=== PATIENT | female | born 1960 | race Caucasian/White ===

== ENCOUNTER → 2019-02-28 | Outpatient (CLI) | payer MEDICARE, SELFPAY ==
[2019-02-28 17:35] LABS: Absolute Lymphocyte Count 3.51 X10^3/uL (0.83-4.51); Absolute Neutrophil Count 5.9 X10^3/uL (2.0-7.7); Basophil# 0.05 X10^3/uL; Basophil% 0.5 % (0-1); Eosinophil# 0.07 X10^3/uL; Eosinophils% 0.7 % (0-5); Hematocrit 48.5 % (37-47); Hemoglobin 15.5 g/dL (12.0-15.0); Lymphocyte # 3.51 X10^3/ul (4.0); Lymphocyte % 33.9 % (19-41); Mean Corpuscular Hgb 28.9 pg (27.0-32.0); Mean Corpuscular Volume 90.5 fL (81-99); Mean Platelet Vol. 11.5 fl (6.2-12.0); Monocyte# 0.77 X10^3/uL; Monocyte% 7.4 % (0-10); NRBC Flagged by Analyzer 0 % (0-5); Neutrophil # 5.92 X10^3/uL (2.7-7.7); Neutrophil % 57.2 % (47-70); Platelet Count 206 K/mm3 (150-450); RBC Distribution Width CV 14.6 % (11.6-14.6); RBC Distribution Width SD 48.6 fl (35.1-43.9); Red Blood Count 5.36 M/mm3 (4.2-5.4); White Blood Count 10.4 K/mm3 (4.4-11.0)
[2019-02-28 17:52] LABS: AST(SGOT) 22 U/L (15-37); Alanine Aminotransfer ALT/SGPT 18 U/L (13-56); Albumin, Serum 3.3 g/dL (3.2-5.0); Alkaline Phosphatase 62 U/L (45-117); Anion Gap 8 (5-15); BUN 11 mg/dL (7-18); BUN/Creat Ratio 16.8 RATIO (10-20); Calcium,Total 8.8 mg/dL (8.5-10.1); Chloride 107 mmol/L (98-107); Creatinine, Serum 0.66 mg/dL (0.55-1.02); EST Glomerular Filtration Rate 99 mL/min (>60); Est Glom Filt Rate - Afr Amer 120 mL/min (>60); Globulin 3.4 g/dL (2.2-4.2); Glucose 104 mg/dL (74-106); Potassium 3.9 mmol/L (3.5-5.1); Protein, Total 6.7 g/dL (6.4-8.2); Sodium Level 140 mmol/L (136-145); Thyroid Stim Hormone (TSH) 1.86 uIU/mL (0.358-3.74)
[2019-03-01 09:36] LABS: Hepatitis C Antibody Non-Reactive (Nonreactive)
== END | disposition home or self-care (01) ==
PROVIDERS: Visit Provider Family Medicine Geriatric Medicine
DX: I10 Essential (primary) hypertension (principal); I48.91 Unspecified atrial fibrillation; Z13.89 Encounter for screening for other disorder
CPT/HCPCS: 36415; 80053; 84443; 85025; 86803

== ENCOUNTER → 2019-03-28 14:55 | Outpatient (CLI) | payer MEDICARE, SELFPAY ==
--- NOTE | 2019-03-28 14:59 | BI_ITS ---
MAMMOGRAPHY - BILATERAL SCREENING 3-D TOMOSYNTHESIS REASON FOR EXAM: Female, 58 years old. NO FAM HX PT GAINED 20LBS NO SX PT ON O2 PERTINENT HISTORY: No significant family history. TECHNIQUE: 2-D mammograms and 3-D Tomosynthesis of the breast (s) were performed. CAD was performed. COMPARISON: 02/17/18, 10/24/2016 FINDINGS: The breast composition is almost entirely fat. Scattered benign calcifications are seen, some of these being vascular calcifications.. No dense spiculated masses or suspicious microcalcifications are identified. No architectural distortion is identified. There is no skin thickening or retraction. There has been no significant change since the prior study. BI/SCREEN MAMM (CAD) W/ALVIN BILAT IMPRESSION: No mammographic signs of malignancy. Routine yearly mammograms recommended. ASSESSMENT CATEGORY: BIRADS Category 2: Benign. A letter regarding these results will be sent to the patient by the facility within 30 days. FOLLOW UP RECOMMENDATION: Yearly follow up mammogram recommended. (A) Approximately 10% of breast cancers are not detected by mammography. A normal mammogram should not delay biopsy of a clinically suspicious abnormality. Electronically Signed: Rod Prince MD at 8:41 EST Tel [phone], Service support ,
== END ==
PROVIDERS: Family Provider Family Medicine Geriatric Medicine; PCP Family Medicine Geriatric Medicine; Referring Provider Family Medicine Geriatric Medicine; Visit Provider Family Medicine Geriatric Medicine
DX: Z12.31 Encounter for screening mammogram for malignant neoplasm of breast (principal)
CPT/HCPCS: 77063; 77067

== ENCOUNTER → 2019-05-04 14:08 | Outpatient (CLI) | payer MEDICARE, SELFPAY ==
[2019-05-04 12:58] VITALS: BMI 31.4
[2019-05-04 15:22] LABS: International Normalized Ratio 1.2; Prothrombin Time (Protime)PT. 14.8 SECONDS (11.7-14.9)
== END ==
PROVIDERS: PCP Family Medicine Geriatric Medicine; Referring Provider Internal Medicine Cardiovascular Disease; Visit Provider Internal Medicine Cardiovascular Disease
DX: Q24.8 Other specified congenital malformations of heart (principal)
CPT/HCPCS: 36415; 85610

== ENCOUNTER → 2019-05-12 13:28 | Outpatient (CLI) | payer MEDICARE, SELFPAY ==
[2019-05-04 12:58] VITALS: BMI 31.4
--- NOTE | 2019-05-12 13:29 | ECHOD_ITS ---
Reason For Study: Congenital heart disease Procedure This was a 2D Doppler, Color Flow transthoracic echocardiogram. Exam performed in department. Left Ventricle See comments. MMode/2D Measurements & Calculations LVIDd: 8.2 cm IVSd: 1.3 cm Ao root diam: 6.0 cm LVIDs: 6.4 cm LVPWd: 0.83 cm FS: 21.8 % LAV(MOD-bp): 88.0 ml LA A4 area: 28.2 cm2 RA A4 area: 20.2 cm2 LAV(MOD-bp) Indexed: 51.8 ml/m2 LAV(MOD-sp2): 82.6 ml LAV(MOD-sp4): 92.7 ml Doppler Measurements & Calculations Lat Peak E' Bulmaro: 10.3 cm/sec Med Peak E' Bulmaro: 4.3 cm/sec TR max bulmaro: 431.7 cm/sec TR max P.7 mmHg Interpretation Summary There is a single ventricle which appears to be dilated with low normal function. The estimated ejection fraction is 50%. The right ventricle appears to be part of the left ventricle with significant trabeculations. The left atrium is dilated. The right atrium is upper normal in size. The aorta is noted to be dilated. The aortic valve appears to be trileaflet with mild regurgitation. There is aortic valve calcification noted which is mild. There is mitral annular calcification with mild mitral regurgitation. There is tricuspid regurgitation noted with estimated right ventricular systolic pressure of 75 mmHg. There is no definitive VSD noted. The pulmonic valve is not visualized. There is no pericardial effusion noted. Ordering Physician: Hadley Klein Referring Physician: Hadley Klein Performed By: Maria Teresa Fisher, [facility]
== END ==
PROVIDERS: PCP Family Medicine Geriatric Medicine; Referring Provider Internal Medicine Cardiovascular Disease; Visit Provider Internal Medicine Cardiovascular Disease
DX: Q20.3 Discordant ventriculoarterial connection (principal)
CPT/HCPCS: 93306

== ENCOUNTER → 2019-06-01 13:47 | Outpatient (CLI) | payer MEDICARE, SELFPAY ==
[2019-05-04 12:58] VITALS: BMI 31.4
[2019-06-01 17:29] LABS: Absolute Neutrophil Count 11.4 X10^3/uL (2.0-7.7); Basophil# 0.04 X10^3/uL; Basophil% 0.3 % (0-1); Eosinophil# 0.09 X10^3/uL; Eosinophils% 0.6 % (0-5); Hematocrit 51.6 % (37-47); Hemoglobin 16.4 g/dL (12.0-15.0); Lymphocyte % 19.1 % (19-41); Mean Corp Hgb Conc 31.8 g/dL (32-36); Mean Corpuscular Hgb 29.6 pg (27.0-32.0); Mean Corpuscular Volume 93.1 fL (81-99); Mean Platelet Vol. 11.3 fl (6.2-12.0); Monocyte# 0.68 X10^3/uL; Monocyte% 4.5 % (0-10); NRBC Flagged by Analyzer 0 % (0-5); Neutrophil # 11.44 X10^3/uL (2.7-7.7); Platelet Count 241 K/mm3 (150-450); RBC Distribution Width CV 13.2 % (11.6-14.6); Red Blood Count 5.54 M/mm3 (4.2-5.4); White Blood Count 15.2 K/mm3 (4.4-11.0)
[2019-06-01 18:04] LABS: AST(SGOT) 22 U/L (15-37); Alanine Aminotransfer ALT/SGPT 18 U/L (13-56); Albumin, Serum 3.7 g/dL (3.2-5.0); Alkaline Phosphatase 76 U/L (45-117); Anion Gap 8 (5-15); BUN 9 mg/dL (7-18); BUN/Creat Ratio 11.6 RATIO (10-20); Calcium,Total 9.2 mg/dL (8.5-10.1); Chloride 106 mmol/L (98-107); Creatinine, Serum 0.78 mg/dL (0.55-1.02); EST Glomerular Filtration Rate 81 mL/min (>60); Est Glom Filt Rate - Afr Amer 98 mL/min (>60); Globulin 3.6 g/dL (2.2-4.2); Glucose 141 mg/dL (74-106); Potassium 4.2 mmol/L (3.5-5.1); Protein, Total 7.3 g/dL (6.4-8.2); Sodium Level 140 mmol/L (136-145); Thyroid Stim Hormone (TSH) 1.21 uIU/mL (0.358-3.74)
== END ==
PROVIDERS: PCP Family Medicine Geriatric Medicine; Visit Provider Family Medicine Geriatric Medicine
DX: E11.65 Type 2 diabetes mellitus with hyperglycemia (principal); I10 Essential (primary) hypertension
CPT/HCPCS: 36415; 80053; 84443; 85025

== ENCOUNTER → 2019-09-02 10:30 | Outpatient (CLI) | payer MEDICARE, SELFPAY ==
[2019-05-04 12:58] VITALS: BMI 31.4
[2019-09-02 12:31] LABS: Absolute Lymphocyte Count 3.34 X10^3/uL (0.83-4.51); Absolute Neutrophil Count 5.5 X10^3/uL (2.0-7.7); Basophil# 0.06 X10^3/uL; Basophil% 0.6 % (0-1); Eosinophil# 0.12 X10^3/uL; Eosinophils% 1.2 % (0-5); Hematocrit 49.2 % (37-47); Hemoglobin 15.9 g/dL (12.0-15.0); Lymphocyte # 3.34 X10^3/ul (4.0); Lymphocyte % 34.2 % (19-41); Mean Corp Hgb Conc 32.3 g/dL (32-36); Mean Corpuscular Hgb 29.8 pg (27.0-32.0); Mean Corpuscular Volume 92.1 fL (81-99); Monocyte# 0.68 X10^3/uL; NRBC Flagged by Analyzer 0 % (0-5); Neutrophil # 5.53 X10^3/uL (2.7-7.7); Neutrophil % 56.7 % (47-70); Platelet Count 214 K/mm3 (150-450); RBC Distribution Width CV 14.3 % (11.6-14.6); RBC Distribution Width SD 48.1 fl (35.1-43.9); Red Blood Count 5.34 M/mm3 (4.2-5.4); White Blood Count 9.8 K/mm3 (4.4-11.0)
[2019-09-02 12:56] LABS: ALB/GLOB Ratio 0.9 RATIO (0.9-2.4); AST(SGOT) 24 U/L (15-37); Alanine Aminotransfer ALT/SGPT 24 U/L (13-56); Albumin, Serum 3.3 g/dL (3.2-5.0); Alkaline Phosphatase 79 U/L (45-117); Anion Gap 9 (5-15); BUN 11 mg/dL (7-18); BUN/Creat Ratio 12.9 RATIO (10-20); Chloride 107 mmol/L (98-107); Creatinine, Serum 0.85 mg/dL (0.55-1.02); EST Glomerular Filtration Rate 73 mL/min (>60); Est Glom Filt Rate - Afr Amer 89 mL/min (>60); Globulin 3.5 g/dL (2.2-4.2); Glucose 194 mg/dL (74-106); Potassium 4.4 mmol/L (3.5-5.1); Protein, Total 6.8 g/dL (6.4-8.2); Sodium Level 140 mmol/L (136-145); Thyroid Stim Hormone (TSH) 3.09 uIU/mL (0.358-3.74)
== END ==
PROVIDERS: PCP Family Medicine Geriatric Medicine; Visit Provider Family Medicine Geriatric Medicine
DX: E11.65 Type 2 diabetes mellitus with hyperglycemia (principal); I10 Essential (primary) hypertension
CPT/HCPCS: 36415; 80053; 84443; 85025

== ENCOUNTER → 2019-09-19 08:39 | Outpatient (CLI) | payer MEDICARE, SELFPAY ==
[2019-05-04 12:58] VITALS: BMI 31.4
--- NOTE | 2019-09-19 08:51 | RAD_ITS ---
STUDY: AIR-CONTRAST UPPER GI SERIES. REASON FOR EXAM: Female, 58 years old. NAUSEA, PHLEGM X 2-3 MONTHS. FAM HX CA FLUOROSCOPY TIME (if supplied): ( 1 minute and 24 seconds ) minutes/seconds. 18 images were obtained. TECHNIQUE: The patient ingested barium. Imaging of the esophagus, stomach and duodenum was obtained. COMPARISON: None. FINDINGS: The esophagus is unremarkable. There is there is evidence of a mild degree of gastroesophageal reflux. The remainder of the stomach and duodenum is unremarkable. No evidence of ulceration. RAD/Upper GI Dual Contrast IMPRESSION: Small sliding hiatal hernia with gastric esophageal reflux. Electronically Signed: Mario De Los Santos, at 13:12 EDT , Service support ,
== END ==
PROVIDERS: PCP Family Medicine Geriatric Medicine; Referring Provider Internal Medicine Gastroenterology; Visit Provider Internal Medicine Gastroenterology
DX: R11.0 Nausea (principal)
CPT/HCPCS: 74246

== ENCOUNTER → 2019-10-26 | Outpatient (CLI) | payer MEDICARE, SELFPAY ==
[2019-05-04 12:58] VITALS: BMI 31.4
--- NOTE | 2019-10-26 10:49 | RAD_ITS ---
STUDY: X-RAY CHEST REASON FOR EXAM: Female, 58 years old. SOB. HX TN W/ 2 CARDIAC STENTS TECHNIQUE: PA and lateral views of the chest. COMPARISON: None. FINDINGS: There is hyperinflation of the lungs consistent with chronic obstructive lung disease (COPD). There is no demonstrated pleural abnormality. There is moderate cardiac enlargement. Prominence of the hilum right lung worrisome for right hilar mass or lymphadenopathy. Correlation with CT the chest with contrast is recommended. Normal visualized pulmonary arteries. Normal visualized aortic arch and descending thoracic aorta. There is a levoscoliosis of the thoracic spine. Normal visualized ribs, clavicles, and shoulders. There is no demonstrated abnormality of the visualized soft tissue structures of the upper abdomen. RAD/Chest PA and Lateral IMPRESSION: Possible right hilar mass or lymphadenopathy correlation with CT the chest with contrast is recommended. Electronically Signed: Ha Mina MD at 11:41 EDT Tel , Service support ,
== END | disposition home or self-care (01) ==
LOC: RAD 10:46
PROVIDERS: PCP Family Medicine Geriatric Medicine; Referring Provider Family Medicine Geriatric Medicine; Visit Provider Family Medicine Geriatric Medicine
DX: R06.02 Shortness of breath (principal)
CPT/HCPCS: 71046

== ENCOUNTER → 2019-10-27 | Outpatient (CLI) | payer MEDICARE, SELFPAY ==
[2019-05-04 12:58] VITALS: BMI 31.4
== END | disposition home or self-care (01) ==
LOC: LABSPEC 10-28 10:54
PROVIDERS: PCP Family Medicine Geriatric Medicine; Referring Provider Family Medicine Geriatric Medicine; Visit Provider Family Medicine Geriatric Medicine
DX: R06.89 Other abnormalities of breathing (principal)
CPT/HCPCS: 87635; G2023; U0003

== ENCOUNTER → 2019-11-03 | Outpatient (CLI) | payer MEDICARE, SELFPAY ==
[2019-05-04 12:58] VITALS: BMI 31.4
--- NOTE | 2019-11-03 13:01 | CT_ITS ---
STUDY: CT CHEST WITHOUT CONTRAST REASON FOR EXAM: Female, 58 years old. LYMPHADENOPATHY, HX PNEUMONIA, SMOKER 1/2 PPD RADIATION DOSAGE (If Supplied By Facility): CTDIvol = ( 11.52 ) mGy, DLP = ( 388.64 ) mGycm TECHNIQUE: Transaxial imaging was performed without the administration of intravenous contrast material. Individualized dose optimization techniques were used for this CT. COMPARISON: None. FINDINGS: Marked hyperexpansion of the lungs. No definite infiltrates. Probable interstitial prominence which could be fibrosis or interstitial edema. Discoid areas of density that are most likely scarring across the anterior segment of the right upper lobe, in the right lower lobe, and in the lingula. There is mild cardiac enlargement. There are calcifications of the coronary arteries. There is massive enlargement of the pulmonary arteries with intimal calcification. This is diagnostic of severe pulmonary arterial hypertension. Pulmonary trunk measures 6.5 cm across. Marked pulmonary artery enlargement extends out into the bilateral pulmonary lobes. Aorta is small with calcified plaque. Normal osseous structures. There is no demonstrated abnormality of the visualized upper abdomen. CT/Chest without Contrast IMPRESSION: COPD. Scattered areas of probable scarring in both lungs. Evidence for severe pulmonary arterial hypertension. Electronically Signed: Dar Hoyos MD at 21:17 EDT , Service support ,
== END | disposition home or self-care (01) ==
LOC: CT 13:00
PROVIDERS: PCP Family Medicine Geriatric Medicine; Referring Provider Family Medicine Geriatric Medicine; Visit Provider Family Medicine Geriatric Medicine
DX: R59.9 Enlarged lymph nodes, unspecified (principal)
CPT/HCPCS: 71250

== ENCOUNTER → 2019-12-01 | Outpatient (CLI) | payer MEDICARE, SELFPAY ==
[2019-11-15 15:06] VITALS: BMI 32.8
[2019-12-01 12:19] LABS: Absolute Neutrophil Count 6.9 X10^3/uL (2.0-7.7); Basophil# 0.04 X10^3/uL; Basophil% 0.4 % (0-1); Eosinophil# 0.06 X10^3/uL; Eosinophils% 0.6 % (0-5); Hemoglobin 16.4 g/dL (12.0-15.0); Lymphocyte % 26.8 % (19-41); Mean Corp Hgb Conc 33.5 g/dL (32-36); Mean Corpuscular Volume 92.6 fL (81-99); Mean Platelet Vol. 11.5 fl (6.2-12.0); Monocyte# 0.85 X10^3/uL; Monocyte% 7.9 % (0-10); NRBC Flagged by Analyzer 0 % (0-5); Neutrophil % 63.7 % (47-70); Platelet Count 170 K/mm3 (150-450); RBC Distribution Width CV 12.7 % (11.6-14.6); Red Blood Count 5.29 M/mm3 (4.2-5.4); White Blood Count 10.8 K/mm3 (4.4-11.0)
[2019-12-01 12:46] LABS: ALB/GLOB Ratio 0.9 RATIO (0.9-2.4); AST(SGOT) 20 U/L (15-37); Alanine Aminotransfer ALT/SGPT 26 U/L (13-56); Albumin, Serum 3.3 g/dL (3.2-5.0); Alkaline Phosphatase 76 U/L (45-117); Anion Gap 5 (5-15); BUN 8 mg/dL (7-18); BUN/Creat Ratio 10.8 RATIO (10-20); Calcium,Total 8.7 mg/dL (8.5-10.1); Chloride 103 mmol/L (98-107); Creatinine, Serum 0.74 mg/dL (0.55-1.02); EST Glomerular Filtration Rate 86 mL/min (>60); Est Glom Filt Rate - Afr Amer 104 mL/min (>60); Globulin 3.5 g/dL (2.2-4.2); Glucose 229 mg/dL (74-106); Potassium 4.4 mmol/L (3.5-5.1); Protein, Total 6.8 g/dL (6.4-8.2); Sodium Level 137 mmol/L (136-145); Thyroid Stim Hormone (TSH) 2.09 uIU/mL (0.358-3.74)
== END | disposition home or self-care (01) ==
LOC: POLAB3 11:33
PROVIDERS: PCP Family Medicine Geriatric Medicine; Visit Provider Family Medicine Geriatric Medicine
DX: E11.65 Type 2 diabetes mellitus with hyperglycemia (principal); I10 Essential (primary) hypertension
CPT/HCPCS: 36415; 80053; 84443; 85025

== ENCOUNTER → 2020-01-31 | Outpatient (CLI) | payer MEDICARE, SELFPAY ==
[2019-11-15 15:06] VITALS: BMI 32.8
--- NOTE | 2020-01-31 09:45 | RAD_ITS ---
STUDY: X-RAY CHEST REASON FOR EXAM: Female, 59 years old. COUGH X 2 DAYS, COPD TECHNIQUE: PA and lateral views of the chest. COMPARISON: Comparison is made with prior radiograph dated 10/26/2019. FINDINGS: Hyperinflation. Stable increased interstitial markings with areas of confluence in the lower lobes as well as in the upper lobes. This is suggestive of scarring. There is no demonstrated pleural abnormality. Normal size heart. Normal mediastinum and liza. There is prominence of the pulmonary hilar arteries without peripheral pulmonary vascular congestion, suggesting pulmonary hypertension. There is atherosclerotic calcification of the aortic arch with tortuosity. There are diffuse degenerative changes of the visualized thoracic spine. Normal visualized ribs, clavicles, and shoulders. There is no demonstrated abnormality of the visualized soft tissue structures of the upper abdomen. RAD/Chest PA and Lateral IMPRESSION: Stable examination with evidence of scarring in both lungs as well as markedly dilated bilateral pulmonary arteries. Electronically Signed: Mario De Los Santos, at 10:23 EDT , Service support ,
== END | disposition home or self-care (01) ==
PROVIDERS: PCP Family Medicine Geriatric Medicine; Referring Provider Internal Medicine Pulmonary Disease; Visit Provider Internal Medicine Pulmonary Disease
DX: J44.9 Chronic obstructive pulmonary disease, unspecified (principal)
CPT/HCPCS: 71046

== ENCOUNTER → 2020-02-20 | Outpatient (CLI) | payer MEDICARE, SELFPAY ==
[2019-11-15 15:06] VITALS: BMI 32.8
== END | disposition home or self-care (01) ==
LOC: LABSPEC 17:50
PROVIDERS: PCP Family Medicine Geriatric Medicine; Referring Provider Family Medicine Geriatric Medicine; Visit Provider Family Medicine Geriatric Medicine
DX: R06.89 Other abnormalities of breathing (principal)
CPT/HCPCS: 87633; 87635; C9803; U0003

== ENCOUNTER → 2020-03-01 10:52 | Outpatient (CLI) | payer MEDICARE, SELFPAY ==
[2019-11-15 15:06] VITALS: BMI 32.8
[2020-03-01 12:37] LABS: Absolute Lymphocyte Count 2.41 X10^3/uL (0.83-4.51); Absolute Neutrophil Count 9.2 X10^3/uL (2.0-7.7); Basophil# 0.03 X10^3/uL; Basophil% 0.2 % (0-1); Eosinophil# 0.04 X10^3/uL; Eosinophils% 0.3 % (0-5); Hematocrit 50.8 % (37-47); Hemoglobin 16.3 g/dL (12.0-15.0); Lymphocyte # 2.41 X10^3/ul (4.0); Lymphocyte % 19.3 % (19-41); Mean Corp Hgb Conc 32.1 g/dL (32-36); Mean Corpuscular Hgb 30.9 pg (27.0-32.0); Mean Corpuscular Volume 96.4 fL (81-99); Mean Platelet Vol. 10.7 fl (6.2-12.0); Monocyte# 0.78 X10^3/uL; Monocyte% 6.2 % (0-10); NRBC Flagged by Analyzer 0 % (0-5); Neutrophil # 9.19 X10^3/uL (2.7-7.7); Neutrophil % 73.6 % (47-70); Platelet Count 212 K/mm3 (150-450); RBC Distribution Width CV 12.3 % (11.6-14.6); RBC Distribution Width SD 44.2 fl (35.1-43.9); Red Blood Count 5.27 M/mm3 (4.2-5.4); White Blood Count 12.5 K/mm3 (4.4-11.0)
[2020-03-01 12:57] LABS: Vitamin D,25 Hydroxy 19.1 ng/mL
[2020-03-01 13:57] LABS: ALB/GLOB Ratio 1.1 RATIO (0.9-2.4); AST(SGOT) 21 U/L (15-37); Alanine Aminotransfer ALT/SGPT 28 U/L (13-56); Albumin, Serum 3.5 g/dL (3.2-5.0); Alkaline Phosphatase 65 U/L (45-117); Anion Gap 7 (5-15); BUN 12 mg/dL (7-18); BUN/Creat Ratio 16.4 RATIO (10-20); Calcium,Total 9.4 mg/dL (8.5-10.1); Chloride 106 mmol/L (98-107); Creatinine, Serum 0.73 mg/dL (0.55-1.02); EST Glomerular Filtration Rate 87 mL/min (>60); Est Glom Filt Rate - Afr Amer 105 mL/min (>60); Globulin 3.2 g/dL (2.2-4.2); Glucose 193 mg/dL (74-106); Potassium 4.2 mmol/L (3.5-5.1); Protein, Total 6.7 g/dL (6.4-8.2); Sodium Level 139 mmol/L (136-145); Thyroid Stim Hormone (TSH) 1.85 uIU/mL (0.358-3.74)
== END ==
PROVIDERS: PCP Family Medicine Geriatric Medicine; Visit Provider Family Medicine Geriatric Medicine
DX: E11.69 Type 2 diabetes mellitus with other specified complication (principal); E55.9 Vitamin D deficiency, unspecified; I10 Essential (primary) hypertension
CPT/HCPCS: 36415; 80053; 82306; 84443; 85025

== ENCOUNTER → 2020-05-10 13:33 | Outpatient (CLI) | payer MEDICARE, SELFPAY ==
[2020-03-16 10:28] VITALS: BMI 32.2
[2020-05-10 17:29] LABS: Absolute Lymphocyte Count 3.48 X10^3/uL (0.83-4.51); Absolute Neutrophil Count 8.2 X10^3/uL (2.0-7.7); Basophil# 0.05 X10^3/uL; Basophil% 0.4 % (0-1); Eosinophil# 0.06 X10^3/uL; Eosinophils% 0.5 % (0-5); Hematocrit 48.5 % (37-47); Lymphocyte # 3.48 X10^3/ul (4.0); Lymphocyte % 27.4 % (19-41); Mean Corpuscular Hgb 31.3 pg (27.0-32.0); Mean Corpuscular Volume 94.9 fL (81-99); Monocyte# 0.87 X10^3/uL; Monocyte% 6.9 % (0-10); NRBC Flagged by Analyzer 0 % (0-5); Neutrophil # 8.16 X10^3/uL (2.7-7.7); Neutrophil % 64.2 % (47-70); Platelet Count 203 K/mm3 (150-450); RBC Distribution Width CV 13.7 % (11.6-14.6); RBC Distribution Width SD 48.1 fl (35.1-43.9); Red Blood Count 5.11 M/mm3 (4.2-5.4); White Blood Count 12.7 K/mm3 (4.4-11.0)
[2020-05-10 17:37] LABS: Erythrocyte Sedimentation Rate 18 mm/hr (0-30)
[2020-05-10 17:45] LABS: Anion Gap 6 (5-15); BUN 10 mg/dL (7-18); BUN/Creat Ratio 14.3 RATIO (10-20); Calcium,Total 9.1 mg/dL (8.5-10.1); Chloride 109 mmol/L (98-107); EST Glomerular Filtration Rate 92 mL/min (>60); Est Glom Filt Rate - Afr Amer 111 mL/min (>60); Glucose 149 mg/dL (74-106); Potassium 3.9 mmol/L (3.5-5.1); Sodium Level 141 mmol/L (136-145)
== END ==
PROVIDERS: PCP Family Medicine Geriatric Medicine; Visit Provider Family Medicine Geriatric Medicine
DX: R06.89 Other abnormalities of breathing (principal)
CPT/HCPCS: 36415; 80048; 85025; 85652; 86140

== ENCOUNTER → 2020-05-24 15:35 | Outpatient (CLI) | payer MEDICARE, SELFPAY ==
[2020-03-16 10:28] VITALS: BMI 32.2
--- NOTE | 2020-05-24 15:43 | MRI_ITS ---
STUDY: MRI BRAIN WITHOUT CONTRAST REASON FOR EXAM: Female, 59 years old. temporal headache x 5 years, visual disturbances TECHNIQUE: Standardized multiplanar fat and water weighted pulse sequences were obtained. COMPARISON: None. FINDINGS: There is mild cerebral atrophy with widening of the extra-axial spaces and ventricular dilatation. There are multiple white matter hyperintensities, distributed throughout the deep white matter tracts of the cerebral hemispheres, consistent with moderate chronic white matter ischemic changes. This appears unusual for age and other etiologies are not excluded. There is no evidence for recent intracranial ischemia or other cause of cytotoxic edema on diffusion weighted imaging (DWI). Normal bilateral basal ganglia. Normal thalami. There is no extra-axial fluid accumulation. Normal flow voids within the major intracranial circulation suggesting patency by spin echo criteria. Normal sella turcica, pituitary gland, infundibular stalk, optic chiasm and hypothalamus. Normal tectal plate and pineal gland. Normal midbrain, chanell and medulla. Normal cerebellum. Normal basal cisterns. Normal bilateral temporal bones. Normal bilateral internal auditory canals. No demonstrated orbital abnormality, within the constraints of a routine brain study. Normal visualized paranasal sinuses. Normal calvarium and skull base. Normal visualized soft tissue structures. Normal visualized upper cervical spine. MRI/Brain without Contrast IMPRESSION: Moderate nonspecific white matter disease. Differential considerations include microangiopathic changes unusual for age, demyelination, vasculitis, migraines, etc. Electronically Signed: Ricci Alatorre MD at 22:04 EST , Service support ,
== END ==
LOC: MRI 15:37
PROVIDERS: PCP Family Medicine Geriatric Medicine; Referring Provider Family Medicine Geriatric Medicine; Visit Provider Family Medicine Geriatric Medicine
DX: R51.9 Headache, unspecified (principal)
CPT/HCPCS: 70551

== ENCOUNTER → 2020-05-30 09:54 | Outpatient (CLI) | payer MEDICARE, SELFPAY ==
[2020-03-16 10:28] VITALS: BMI 32.2
[2020-05-30 13:01] LABS: Absolute Lymphocyte Count 2.47 X10^3/uL (0.83-4.51); Absolute Neutrophil Count 10.1 X10^3/uL (2.0-7.7); Basophil# 0.04 X10^3/uL; Basophil% 0.3 % (0-1); Eosinophil# 0.02 X10^3/uL; Eosinophils% 0.2 % (0-5); Hematocrit 46.1 % (37-47); Hemoglobin 15.5 g/dL (12.0-15.0); Lymphocyte # 2.47 X10^3/ul (4.0); Lymphocyte % 18.7 % (19-41); Mean Corp Hgb Conc 33.6 g/dL (32-36); Mean Corpuscular Hgb 31.8 pg (27.0-32.0); Mean Corpuscular Volume 94.5 fL (81-99); Mean Platelet Vol. 11.6 fl (6.2-12.0); Monocyte# 0.47 X10^3/uL; Monocyte% 3.6 % (0-10); NRBC Flagged by Analyzer 0 % (0-5); Neutrophil # 10.14 X10^3/uL (2.7-7.7); Neutrophil % 76.7 % (47-70); Platelet Count 173 K/mm3 (150-450); RBC Distribution Width CV 13.3 % (11.6-14.6); RBC Distribution Width SD 46.3 fl (35.1-43.9); Red Blood Count 4.88 M/mm3 (4.2-5.4); White Blood Count 13.2 K/mm3 (4.4-11.0)
[2020-05-30 13:24] LABS: ALB/GLOB Ratio 1.1 RATIO (0.9-2.4); AST(SGOT) 21 U/L (15-37); Alanine Aminotransfer ALT/SGPT 30 U/L (13-56); Albumin, Serum 3.4 g/dL (3.2-5.0); Alkaline Phosphatase 61 U/L (45-117); Anion Gap 8 (5-15); BUN 9 mg/dL (7-18); BUN/Creat Ratio 11.3 RATIO (10-20); Chloride 104 mmol/L (98-107); EST Glomerular Filtration Rate 79 mL/min (>60); Est Glom Filt Rate - Afr Amer 95 mL/min (>60); Globulin 3.1 g/dL (2.2-4.2); Glucose 196 mg/dL (74-106); Protein, Total 6.5 g/dL (6.4-8.2); Sodium Level 138 mmol/L (136-145)
== END ==
PROVIDERS: PCP Family Medicine Geriatric Medicine; Visit Provider Family Medicine Geriatric Medicine
DX: E11.65 Type 2 diabetes mellitus with hyperglycemia (principal); I10 Essential (primary) hypertension
CPT/HCPCS: 36415; 80053; 84443; 85025

== ENCOUNTER → 2020-07-30 14:34 | Outpatient (CLI) | payer MEDICARE, SELFPAY ==
[2020-03-16 10:28] VITALS: BMI 32.2
== END ==
PROVIDERS: PCP Family Medicine Geriatric Medicine; Referring Provider Family Medicine Geriatric Medicine; Visit Provider Family Medicine Geriatric Medicine
DX: R06.89 Other abnormalities of breathing (principal)
CPT/HCPCS: 87635; C9803; U0002

== ENCOUNTER → 2020-08-28 11:08 | Outpatient (CLI) | payer MEDICARE, MEDICAID, SELFPAY ==
[2020-03-16 10:28] VITALS: BMI 32.2
[2020-08-28 12:15] LABS: Absolute Lymphocyte Count 4.57 X10^3/uL (0.83-4.51); Absolute Neutrophil Count 5.1 X10^3/uL (2.0-7.7); Basophil# 0.06 X10^3/uL; Basophil% 0.6 % (0-1); Eosinophil# 0.09 X10^3/uL; Eosinophils% 0.8 % (0-5); Hematocrit 45.3 % (37-47); Hemoglobin 14.9 g/dL (12.0-15.0); Lymphocyte # 4.57 X10^3/ul (0.83-4.51); Lymphocyte % 42.7 % (19-41); Mean Corp Hgb Conc 32.9 g/dL (32-36); Mean Corpuscular Hgb 31.1 pg (27.0-32.0); Mean Corpuscular Volume 94.6 fL (81-99); Mean Platelet Vol. 10.7 fl (6.2-12.0); Monocyte# 0.81 X10^3/uL; Monocyte% 7.6 % (0-10); NRBC Flagged by Analyzer 0 % (0-5); Neutrophil # 5.13 X10^3/uL (2.7-7.7); Neutrophil % 47.9 % (47-70); Platelet Count 231 K/mm3 (150-450); RBC Distribution Width CV 12.6 % (11.6-14.6); RBC Distribution Width SD 43.9 fl (35.1-43.9); Red Blood Count 4.79 M/mm3 (4.2-5.4); White Blood Count 10.7 K/mm3 (4.4-11.0)
[2020-08-28 12:46] LABS: AST(SGOT) 11 U/L (15-37); Alanine Aminotransfer ALT/SGPT 16 U/L (13-56); Albumin, Serum 3.3 g/dL (3.2-5.0); Alkaline Phosphatase 66 U/L (45-117); Anion Gap 5 (5-15); BUN 8 mg/dL (7-18); BUN/Creat Ratio 12.2 RATIO (10-20); Calcium,Total 9.3 mg/dL (8.5-10.1); Chloride 106 mmol/L (98-107); Creatinine, Serum 0.66 mg/dL (0.55-1.02); EST Glomerular Filtration Rate 99 mL/min (>60); Est Glom Filt Rate - Afr Amer 120 mL/min (>60); Globulin 3.3 g/dL (2.2-4.2); Glucose 125 mg/dL (74-106); Potassium 3.7 mmol/L (3.5-5.1); Protein, Total 6.6 g/dL (6.4-8.2); Sodium Level 142 mmol/L (136-145); Thyroid Stim Hormone (TSH) 2.48 uIU/mL (0.358-3.74)
== END ==
PROVIDERS: PCP Family Medicine Geriatric Medicine; Visit Provider Family Medicine Geriatric Medicine
DX: I10 Essential (primary) hypertension (principal); E11.65 Type 2 diabetes mellitus with hyperglycemia
CPT/HCPCS: 36415; 80053; 84443; 85025

== ENCOUNTER → 2020-09-11 15:09 | Outpatient (CLI) | payer MEDICARE, MEDICAID, SELFPAY ==
[2020-03-16 10:28] VITALS: BMI 32.2
== END ==
PROVIDERS: PCP Family Medicine Geriatric Medicine; Visit Provider Family Medicine Geriatric Medicine
DX: N39.0 Urinary tract infection, site not specified (principal)
CPT/HCPCS: 87086; 87088

== ENCOUNTER → 2020-09-21 11:04 | Outpatient (CLI) | payer MEDICARE, MEDICAID, SELFPAY ==
[2020-03-16 10:28] VITALS: BMI 32.2
--- NOTE | 2020-09-21 12:00 | RAD_ITS ---
STUDY: X-RAY - UNILATERAL RIBS ( LEFT ) WITH CHEST REASON FOR EXAM: Female, 59 years old. RIB PAIN TECHNIQUE - RIBS: 4 view(s) of the ribs. TECHNIQUE - CHEST: Single PA view of the chest. COMPARISON: 01/31/2020 FINDINGS - RIBS: Multiple healed left rib fractures. No definite acute displaced rib fracture. FINDINGS - CHEST: The lungs are clear and expanded. There is no demonstrated pleural abnormality. There is moderate cardiac enlargement. Normal mediastinum and liza. Normal visualized pulmonary arteries. Normal visualized aortic arch and descending thoracic aorta. Normal visualized thoracic spine. Normal visualized ribs, clavicles, and shoulders. There is no demonstrated abnormality of the visualized soft tissue structures of the upper abdomen. RAD/Ribs Uni Min 3V w/PA Chest IMPRESSION: RIBS: No acute displaced rib fracture. CHEST: No pneumothorax or hemothorax per Electronically Signed: Ha Mina MD at 11:28 EDT Tel , Service support ,
== END ==
PROVIDERS: PCP Family Medicine Geriatric Medicine; Referring Provider Family Medicine Geriatric Medicine; Visit Provider Family Medicine Geriatric Medicine
DX: R07.89 Other chest pain (principal)
CPT/HCPCS: 71101

== ENCOUNTER 2020-10-12 12:38 | Emergency (ER) | payer MEDICARE, SELFPAY ==
[2020-10-11 11:38] VITALS: BMI 30.2
[2020-10-12] VITALS (14 sets, daily range): BP systolic 109–135; BP diastolic 62–106; PULSE 85–94; RESP 17–31; TEMP 36.8; O2SAT 74–98; BMI 30.4
--- NOTE | 2020-10-12 12:55 | EKG12_ITS ---
Test Reason : SOB Blood Pressure : / mmHG Vent. Rate : 087 BPM Atrial Rate : 087 BPM P-R Int : 166 ms QRS Dur : 132 ms QT Int : 404 ms P-R-T Axes : 045 089 087 degrees QTc Int : 486 ms Sinus rhythm with occasional Premature ventricular complexes Left ventricular hypertrophy with QRS widening Nonspecific T wave abnormality Abnormal ECG Confirmed by YOCASTA FLAHERTY, VERNA ([id number]), manuscript editor ANAIS MAKI ([id number]) on 10/17/2020 1:35:45 PM Referred By: KAYODE Confirmed By:VERNA RUST MD
--- NOTE | 2020-10-12 12:58 | NURSING ---
NO OLD EKGS
--- NOTE | 2020-10-12 13:00 | EX.ED.DYSGE1 ---
HPI <Dr. 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 Patient states over the past 3 weeks she has been generally declining with her breathing. She does feel short of breath. She has a right lateral chest wall pain associated with this. She has been using her breathing treatments at home which does not give significant relief. She has increased her oxygen up to 8 L. In the PCPs office she was satting in the mid to high 70s. Patient states she has had a cough productive of green sputum. She recently completed a course of steroids. She did develop some thrush in her mouth after this. She is also had nasal congestion. She denies any abdominal pain. No nausea/vomiting or diarrhea. She has been vaccinated for Covid. She denies any known sick exposures. No leg swelling or calf pain. She does have a history of upper extremity DVT. She is on Eliquis. PFS <Dr. Isrrael Kebede DO - Last Filed: 10/13/20 07:10> [facility] Medical History (Updated 10/12/20 @ 17:[address] 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 100 mcg-umeclid 62.5 mcg-vilant 25 mcg inhalat.powder 1 inh INHALATION DAILY 03/29/19 [History Last Taken 10/12/20] metoprolol tartrate 25 mg tablet 12.5 mg PO BID tab 03/29/19 [History Last Taken 10/12/20] rosuvastatin 20 mg tablet 20 mg PO DAILY 03/29/19 [History Last Taken 10/12/20] tadalafil 20 mg tablet 20 mg PO BID tab 03/29/19 [History Last Taken 10/12/20] omeprazole 20 mg capsule,delayed release 20 mg PO DAILY cap 05/04/19 [History Last Taken 10/12/20] pregabalin 75 mg capsule 75 mg PO DAILY cap 03/16/20 [History Last Taken 10/12/20] apixaban 5 mg tablet 5 mg PO BID #60 tab 07/24/20 [Rx Last Taken 10/12/20] albuterol sulfate 2.5 mg INHALATION Q6H PRN ml 10/11/20 [History Last Taken 10/12/20] dapagliflozin 10 mg tablet 10 mg PO DAILY tab 10/11/20 [History Last Taken 10/12/20] metformin 1,000 mg tablet 1,000 mg PO BID tab 10/11/20 [History Last Taken 10/12/20] ubrogepant 50 mg tablet 50 mg PO ONCE PRN tab 10/11/20 [History Last Taken 2 Days Ago ~10/10/20] Allergy/AdvReac Type Severity Reaction Status Date / Time azithromycin [From Zithromax] Allergy Intermediate Unknown Verified 10/12/20 12:43 Iodinated Contrast Media Allergy Intermediate Unknown Verified 10/12/20 12:43 iodine Allergy Intermediate Unknown Verified 10/12/20 12:43 levofloxacin [From Levaquin] Allergy Intermediate Unknown Verified 10/12/20 12:43 moxifloxacin Allergy Intermediate Unknown Verified 10/12/20 12:43 Penicillins Allergy Intermediate Unknown Verified 10/12/20 12:43 vancomycin Allergy Intermediate Unknown Verified 10/12/20 12:43 Family History Father , 72 Cancer bladder and pancreas Atrial fibrillation Mother , 67 Myocardial infarction Diabetes Hypertension Cancer throat Surgical History History of coronary artery stent placement (03/06/14) Social History Smoking Status: Light Smoker (<10/day) alcohol intake: never substance use type: does not use caffeine: Yes (Occasionally) ROS <Dr. Isrrael Kebede DO - Last Filed: 10/13/20 07:10> ROS ED Constitutional Constitutional ED: Denies chills or fever(s) Eyes Eyes: Denies change in vision ENT ENT ED: Reports rhinorrhea; Denies epistaxis Cardiovascular Cardiovascular: Reports chest pain; Denies palpitations Respiratory/Chest Respiratory/Chest: Reports cough, dyspnea, dyspnea on exertion and sputum Gastrointestinal Gastrointestinal: Denies abdominal pain, diarrhea, nausea or vomiting Genitourinary Genitourinary ED: Denies dysuria, hematuria or urinary frequency Musculoskeletal Musculoskeletal: Denies back pain or neck pain Integumentary Denies rash Neurologic Neurologic: Denies dizziness, headache(s) or weakness EXAM <Dr. Isrrael Kebede DO - Last Filed: 10/13/20 07:10> Physical Exam Narrative Exam Narrative: Patient does appear mild distress with increased work of breathing. Const Vital Signs: 10/12/20 12:38 10/12/20 12:52 10/12/20 12:53 Temperature 98.3 F Temperature Source Temporal Pulse Rate 94 Respiratory Rate 17 Respiratory Effort Short of Breath Respiratory Pattern Normal Blood Pressure 117/62 Blood Pressure Mean 80 Pulse Ox 74 84 Oxygen Delivery Method Nasal Cannula Non-Rebreather Non-Rebreather Oxygen Flow Rate (L/min) 5 15 15 Fraction of Inspired Oxygen (FIO2) 10/12/20 13:00 10/12/20 13:10 10/12/20 13:14 Temperature Temperature Source Pulse Rate 87 Respiratory Rate 27 H 27 H Respiratory Effort Short of Breath Labored Accessory Muscle Use Respiratory Pattern Blood Pressure Blood Pressure Mean Pulse Ox 85 85 88 Oxygen Delivery Method Venturi Mask Venturi Mask Venturi Mask Oxygen Flow Rate (L/min) 12 12 12 Fraction of Inspired Oxygen (FIO2) 50 50 10/12/20 13:21 10/12/20 15:03 10/12/20 16:01 Temperature Temperature Source Pulse Rate 87 89 88 Respiratory Rate 20 H 17 31 H Respiratory Effort Respiratory Pattern Blood Pressure 109/66 124/85 H 135/105 H Blood Pressure Mean 80 98 115 Pulse Ox 87 86 86 Oxygen Delivery Method Venturi Mask Venturi Mask Venturi Mask Oxygen Flow Rate (L/min) 12 Fraction of Inspired Oxygen (FIO2) 50 10/12/20 16:55 10/12/20 17:43 10/12/20 18:37 Temperature Temperature Source Pulse Rate 85 91 88 Respiratory Rate 23 H 25 H 22 H Respiratory Effort Respiratory Pattern Blood Pressure 127/106 H 116/65 115/82 H Blood Pressure Mean 113 82 93 Pulse Ox 98 87 86 Oxygen Delivery Method Venturi Mask Venturi Mask Venturi Mask Oxygen Flow Rate (L/min) Fraction of Inspired Oxygen (FIO2) 50 50 50 10/12/20 20:13 10/12/20 20:14 Temperature Temperature Source Pulse Rate 93 93 Respiratory Rate 23 H 23 H Respiratory Effort Respiratory Pattern Blood Pressure 114/78 114/78 Blood Pressure Mean 90 90 Pulse Ox 87 98 Oxygen Delivery Method Venturi Mask Oxygen Flow Rate (L/min) Fraction of Inspired Oxygen (FIO2) 50 Positive well nourished and well developed General Appearance ED: well developed HEENT Reports normocephalic and head/scalp atraumatic Eyes PERRL and EOMs intact bilaterally Neck supple Resp Resp Narrative: Clear lung sounds bilaterally but diminished. She does have accessory muscle use. Able to speak in a few word sentences. Auscultation: Negative for rales, rhonchi or wheezes Cardio regular rate, regular rhythm and no murmurs GI normal to inspection, nondistended, normoactive bowel sounds and non-tender Palpation: soft; Negative for guarding or rebound tenderness present Back/Spine no CVA tenderness Extremity normal to inspection Extremity Narrative: Trace edema bilateral lower extremities that is symmetrical. General Extremety ED: Negative for tenderness Neuro CN's II-XII intact bilaterally and no sensory deficits noted Sensorium / Orientation: alert Motor Exam: strength 5/5 throughout Psych mental status grossly normal Skin no rashes or lesions noted <Dr. Kamran Nelson, DO - Last Filed: 10/12/20 17:53> Physical Exam Const Vital Signs: 10/12/20 12:38 10/12/20 12:52 10/12/20 12:53 Temperature 98.3 F Temperature Source Temporal Pulse Rate 94 Respiratory Rate 17 Respiratory Effort Short of Breath Respiratory Pattern Normal Blood Pressure 117/62 Blood Pressure Mean 80 Pulse Ox 74 84 Oxygen Delivery Method Nasal Cannula Non-Rebreather Non-Rebreather Oxygen Flow Rate (L/min) 5 15 15 Fraction of Inspired Oxygen (FIO2) 10/12/20 13:00 10/12/20 13:10 10/12/20 13:14 Temperature Temperature Source Pulse Rate 87 Respiratory Rate 27 H 27 H Respiratory Effort Short of Breath Labored Accessory Muscle Use Respiratory Pattern Blood Pressure Blood Pressure Mean Pulse Ox 85 85 88 Oxygen Delivery Method Venturi Mask Venturi Mask Venturi Mask Oxygen Flow Rate (L/min) 12 12 12 Fraction of Inspired Oxygen (FIO2) 50 50 10/12/20 13:21 10/12/20 15:03 10/12/20 16:01 Temperature Temperature Source Pulse Rate 87 89 88 Respiratory Rate 20 H 17 31 H Respiratory Effort Respiratory Pattern Blood Pressure 109/66 124/85 H 135/105 H Blood Pressure Mean 80 98 115 Pulse Ox 87 86 86 Oxygen Delivery Method Venturi Mask Venturi Mask Venturi Mask Oxygen Flow Rate (L/min) 12 Fraction of Inspired Oxygen (FIO2) 50 10/12/20 16:55 10/12/20 17:43 10/12/20 18:37 Temperature Temperature Source Pulse Rate 85 91 88 Respiratory Rate 23 H 25 H 22 H Respiratory Effort Respiratory Pattern Blood Pressure 127/106 H 116/65 115/82 H Blood Pressure Mean 113 82 93 Pulse Ox 98 87 86 Oxygen Delivery Method Venturi Mask Venturi Mask Venturi Mask Oxygen Flow Rate (L/min) Fraction of Inspired Oxygen (FIO2) 50 50 50 10/12/20 20:13 10/12/20 20:14 Temperature Temperature Source Pulse Rate 93 93 Respiratory Rate 23 H 23 H Respiratory Effort Respiratory Pattern Blood Pressure 114/78 114/78 Blood Pressure Mean 90 90 Pulse Ox 87 98 Oxygen Delivery Method Venturi Mask Oxygen Flow Rate (L/min) Fraction of Inspired Oxygen (FIO2) 50 [facility] <Dr. Isrrael Kebede, DO - Last Filed: 10/13/20 07:10> [facility] Narrative Medical decision making narrative: Patient presents to the emergency department for shortness of breath. She was hypoxic at her PCPs office. She is satting 74% on her baseline 5 L of nasal cannula oxygen. She is started on a nonrebreather. Will give DuoNeb breathing treatments. Chest x-ray, basic lab work being obtained. She is given a dose of Solu-Medrol with the presumed COPD exacerbation of the increase sputum production and shortness of breath and cough. Patient's work-up is consistent with COPD exacerbation. Her high-sensitivity troponin is mildly elevated. Patient is going to require hospitalization given her increased oxygen requirement. The hospitalist, trim installer and on-call surgical technologist do not feel comfortable treating her here at this hospital given her comorbidities. Patient was not wanting to be transferred except to [facility]. She states that she was just going to leave. I did have the hospitalist come down to speak with her. Currently pending their evaluation and disposition will be based on this. Patient signed out due to end of shift. Lab Data Labs: Laboratory Results - last 24 hr 10/12/20 10/12/20 10/12/20 12:55 12:55 12:55 WBC 13.5 H RBC 5.57 H Hgb 16.4 H Hct 51.9 H MCV 93.2 MCH 29.4 MCHC 31.6 L RDW Std Deviation 47.2 H RDW Coeff of Gurvinder 13.9 Plt Count 183 MPV 11.2 Immature Gran % (Auto) 0.400 Neut % (Auto) 75.9 H Lymph % (Auto) 16.4 L Irwin % (Auto) 7.1 Eos % (Auto) 0.1 Baso % (Auto) 0.1 Absolute Neuts (auto) 10.2 H Absolute Lymphs (auto) 2.21 Nucleated RBC % 0 Sodium 140 Potassium 3.5 Chloride 106 Carbon Dioxide 28.0 Anion Gap 6 BUN 7 Creatinine 0.73 Estim Creat Clear Calc 61.07 Est GFR (MDRD) Af Amer 106 Est GFR (MDRD) Non-Af 87 BUN/Creatinine Ratio 9.6 L Glucose 163 H Calcium 9.4 Magnesium 1.5 L Troponin I High Sens 95.4 H* B-Natriuretic Peptide 133.8 H Single view chest x-ray shows increase markings around the pulmonary vasculature branches. No obvious consolidation appreciated. Comparing this to previous chest x-ray this does look stable. Radiography Diagnostic Testing: Radiology Impression Chest X-Ray 10/12/20 13:45 IMPRESSION: Stable enlargement of the pulmonary arteries bilaterally with increased markings at the lung bases suggestive of scarring. Stable nodular densities in the right upper lobe. Electronically Signed: Mario De Los Santos MD at 14:27 EDT , Service support , EKG Initial EKG: Attestation: I personally reviewed and interpreted this EKG as follows: (Rate of 87 bpm in sinus rhythm with PVCs. Prolonged QRS of 132. Mild ST elevation of V2 but no reciprocal changes. No continue lead elevation. Similar to previous EKG performed on May 04, 2019) <Dr. Kamran Nelson, DO - Last Filed: 10/12/20 17:53> [facility] Narrative Medical decision making narrative: Le: Patient signed out to me pending hospitalist evaluation in the ED. Patient diagnosed with COPD exacerbation with hypoxemia. History of transposition of great arteries along with single left ventricle, chronic 6 L of oxygen typically with pulse ox in the high 80s. Presented in the low 70s currently on a Ventimask at 50% in no distress. Pulse ox in the high 80s. Status post Solu-Medrol and doxycycline for treatment. Work-up negative for infiltrates chronic findings on x-ray. Troponin elevated at 95, no chest pains EKG with no acute changes. Covid was negative. Per hospitalist, Dr. Santoyo with patient's underlying history, he discussed with cardiology and pulmonary here, felt she would be best benefit at a higher level of care. Patient has been at [facility] in the past, discussed with transfer line and passenger service agent there due to requiring 50% oxygen on event mass. Discussed with Dr. Abdi, went over patient's history of findings and agrees to accept the patient. Currently awaiting for bed for placement. Lab Data Labs: Laboratory Results - last 24 hr 10/12/20 10/12/20 10/12/20 12:55 12:55 12:55 WBC 13.5 H RBC 5.57 H Hgb 16.4 H Hct 51.9 H MCV 93.2 MCH 29.4 MCHC 31.6 L RDW Std Deviation 47.2 H RDW Coeff of Gurvinder 13.9 Plt Count 183 MPV 11.2 Immature Gran % (Auto) 0.400 Neut % (Auto) 75.9 H Lymph % (Auto) 16.4 L Irwin % (Auto) 7.1 Eos % (Auto) 0.1 Baso % (Auto) 0.1 Absolute Neuts (auto) 10.2 H Absolute Lymphs (auto) 2.21 Nucleated RBC % 0 Sodium 140 Potassium 3.5 Chloride 106 Carbon Dioxide 28.0 Anion Gap 6 BUN 7 Creatinine 0.73 Estim Creat Clear Calc 61.07 Est GFR (MDRD) Af Amer 106 Est GFR (MDRD) Non-Af 87 BUN/Creatinine Ratio 9.6 L Glucose 163 H Calcium 9.4 Magnesium 1.5 L Troponin I High Sens 95.4 H* B-Natriuretic Peptide 133.8 H Radiography Diagnostic Testing: Radiology Impression Chest X-Ray 10/12/20 13:45 IMPRESSION: Stable enlargement of the pulmonary arteries bilaterally with increased markings at the lung bases suggestive of scarring. Stable nodular densities in the right upper lobe. Electronically Signed: Mario De Los Santos MD at 14:27 EDT , Service support , Discharge Plan Triage Chief Complaint: Shortness of Breath ED Provider: Isrrael Kebede Dx/Rx/DC Orders Clinical Impression: COPD exacerbation, Hypoxemia, Elevated troponin Prescriptions: No Action omeprazole 20 mg capsule,delayed release(DR/EC) 20 mg PO DAILY RF: 0 metformin 1,000 mg tablet 1,000 mg PO BID RF: 0 metoprolol tartrate 25 mg tablet 12.5 mg PO BID RF: 0 tadalafil 20 mg tablet 20 mg PO BID RF: 0 bumetanide 1 mg tablet 1 mg PO QODAY RF: 0 rosuvastatin 20 mg tablet 20 mg PO DAILY RF: 0 Trelegy Ellipta 100-62.5-25 mcg blister with device 1 inh INHALATION DAILY RF: 0 albuterol sulfate [Ventolin HFA] 90 mcg/actuation HFA aerosol inhaler 2 puff INHALATION Q6H PRN (Reason: COPD) RF: 0 pregabalin 75 mg capsule 75 mg PO DAILY RF: 0 Farxiga 10 mg tablet 10 mg PO DAILY RF: 0 albuterol sulfate 2.5 mg /3 mL (0.083 %) solution for nebulization 2.5 mg inhalation Q6H PRN (Reason: COPD) RF: 0 Ubrelvy 50 mg tablet 50 mg PO ONCE PRN (Reason: KRISHNAN) RF: 0 Eliquis 5 mg tablet 5 mg PO BID Qty: 60 RF: 11 Primary Care Provider: Adolfo Arreguin Chi Referrals: Adolfo Arreguin Chi, MD [Primary Care Provider] - Disposition Disposition: Transfer to Another Type [facility] Discharge Location: [facility] Discharge Date/Time: 10/12/20 21:30
[2020-10-12] MEDS: Ipratropium/Albuterol Sulfate 3 ML AMPUL.NEB INHALATION (13:07)
[2020-10-12] MEDS: Albuterol 2.5 MG/3 ML VIAL.NEB. INHALATION (13:10)
[2020-10-12 13:11] LABS: Absolute Lymphocyte Count 2.21 X10^3/uL (0.83-4.51); Absolute Neutrophil Count 10.2 X10^3/uL (2.0-7.7); Basophil# 0.02 X10^3/uL; Basophil% 0.1 % (0-1); Eosinophil# 0.02 X10^3/uL; Eosinophils% 0.1 % (0-5); Hematocrit 51.9 % (37-47); Hemoglobin 16.4 g/dL (12.0-15.0); Lymphocyte # 2.21 X10^3/ul (0.83-4.51); Lymphocyte % 16.4 % (19-41); Mean Corp Hgb Conc 31.6 g/dL (32-36); Mean Corpuscular Hgb 29.4 pg (27.0-32.0); Mean Corpuscular Volume 93.2 fL (81-99); Mean Platelet Vol. 11.2 fl (6.2-12.0); Monocyte# 0.96 X10^3/uL; Monocyte% 7.1 % (0-10); NRBC Flagged by Analyzer 0 % (0-5); Neutrophil % 75.9 % (47-70); Platelet Count 183 K/mm3 (150-450); RBC Distribution Width CV 13.9 % (11.6-14.6); RBC Distribution Width SD 47.2 fl (35.1-43.9); Red Blood Count 5.57 M/mm3 (4.2-5.4); White Blood Count 13.5 K/mm3 (4.4-11.0)
[2020-10-12] MEDS: MethylPREDNISolone 125 MG/2 ML Vial IV (13:13)
[2020-10-12 13:31] LABS: Anion Gap 6 (5-15); BUN 7 mg/dL (7-18); BUN/Creat Ratio 9.6 RATIO (10-20); Calcium,Total 9.4 mg/dL (8.5-10.1); Chloride 106 mmol/L (98-107); Creatinine, Serum 0.73 mg/dL (0.55-1.02); EST Glomerular Filtration Rate 87 mL/min (>60); Est Glom Filt Rate - Afr Amer 106 mL/min (>60); Estimated Creatinine Clearance 61.07 ml/min; Glucose 163 mg/dL (74-106); Magnesium 1.5 mg/dL (1.6-2.6); Potassium 3.5 mmol/L (3.5-5.1); Sodium Level 140 mmol/L (136-145); Troponin-I HS 95.4 pg/mL (3.0-53.7)
[2020-10-12 13:34] LABS: BNP,B-Type NATRIURETIC PEPTIDE 133.8 pg/mL (0-100)
--- NOTE | 2020-10-12 13:45 | RAD_ITS ---
STUDY: X-RAY CHEST REASON FOR EXAM: Female, 59 years old. SOB TECHNIQUE: Single AP portable view of the chest. COMPARISON: Comparison is made with prior examination dated 09/21/2020. FINDINGS: Stable increased markings at the lung bases suggestive of scarring. Stable nodular densities in the right upper lobe. There is no demonstrated pleural abnormality. There is mild cardiac enlargement. Normal mediastinum and liza. There is prominence of the pulmonary hilar arteries without peripheral pulmonary vascular congestion, suggesting pulmonary hypertension. Normal visualized aortic arch and descending thoracic aorta. There are diffuse degenerative changes of the visualized thoracic spine. Normal visualized ribs, clavicles, and shoulders. There is no demonstrated abnormality of the visualized soft tissue structures of the upper abdomen. RAD/Chest 1 View (Portable) IMPRESSION: Stable enlargement of the pulmonary arteries bilaterally with increased markings at the lung bases suggestive of scarring. Stable nodular densities in the right upper lobe. Electronically Signed: Mario De Los Santos MD at 14:27 EDT , Service support ,
--- NOTE | 2020-10-12 14:31 | NURSING ---
DR CRUZ FOR DR HEADLEY
--- NOTE | 2020-10-12 16:15 | CON.PCM.HO_ITS ---
Assessment & Plan Assessment/Plan (1) Acute and chronic respiratory failure with hypoxia: PLAN: Assessment 1. Acute on chronic hypoxic respiratory failure: Etiology is compounded by her single ventricle, pulmonary hypertension. She patient may have some underlying pneumonia or pulmonary vascular congestion and CHF 2. Pulmonary hypertension, likely group 2 due to her single ventricle 3. 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 Elevated troponins, suspect demand given hypoxia and known congenital heart disease 5. Paroxysmal atrial fibrillation 6. Hypertension Plan I discussed with Dr. Huang, of cardiology, who stated that with the patient's single ventricle that she would be best suited at a tertiary facility for further management of her underlying issues. I discussed with Dr. Andino, pulmo nology, who feels that her pulmonary hypertension would be best suited at a tertiary facility given her congenital heart disease as well. Patient was very resistant to going to a tertiary facility and only wanted [facility] but they do not have any beds available. She did not want to go to [facility] because they would give her a transplant. I told her that she would not be receiving a transplant if she did not want 1. They may recommend that she be evaluated for transplantation but she has been steadfast in stating that she would not want transplant under any condition. I told her that we cannot adequately care for her in the hospital because I do not have the specialist backup to effectively take care of her particular if her issues in regards to her congenital heart or pulmonary artery hypertension became an issue or I do not have a specialist to be able to delineate how much of this is a unique pneumonic process, such as pneumonia, or progression of her underlying heart and lung disease. She eventually relented and agreed to be transferred. I let Dr. Nelson know this. Earlier, I was discussing with Dr. Kebede. HPI Consult Data Date of Consult: 10/12/20 HPI Narrative HPI Narrative: KAREN GEIGER, is a 59 F who presents shortness of breath. Patient has a congenital heart defect where she has a single ventricle and pulmonary hypertension. Patient is on oxygen 5 L continuous at home but has been more short of breath over the past few days. Patient was hypoxic at 80% her 5 L so was switched over to nonrebreather where her pulse ox is doing better. Patient was treated with aerosols and methylprednisolone. The [facility] service was contacted for admission. [facility] Medical History (Updated 10/12/20 @ 16:[address] 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 100 mcg-umeclid 62.5 mcg-vilant 25 mcg inhalat.powder 1 inh INHALATION DAILY 03/29/19 [History Last Taken 10/12/20] metoprolol tartrate 25 mg tablet 12.5 mg PO BID tab 03/29/19 [History Last Taken 10/12/20] rosuvastatin 20 mg tablet 20 mg PO DAILY 03/29/19 [History Last Taken 10/12/20] tadalafil 20 mg tablet 20 mg PO BID tab 03/29/19 [History Last Taken 10/12/20] omeprazole 20 mg capsule,delayed release 20 mg PO DAILY cap 05/04/19 [History Last Taken 10/12/20] pregabalin 75 mg capsule 75 mg PO DAILY cap 03/16/20 [History Last Taken 10/12/20] apixaban 5 mg tablet 5 mg PO BID #60 tab 07/24/20 [Rx Last Taken 10/12/20] albuterol sulfate 2.5 mg INHALATION Q6H PRN ml 10/11/20 [History Last Taken 10/12/20] dapagliflozin 10 mg tablet 10 mg PO DAILY tab 10/11/20 [History Last Taken 10/12/20] metformin 1,000 mg tablet 1,000 mg PO BID tab 10/11/20 [History Last Taken 10/12/20] ubrogepant 50 mg tablet 50 mg PO ONCE PRN tab 10/11/20 [History Last Taken 2 Days Ago ~10/10/20] Allergy/AdvReac Type Severity Reaction Status Date / Time azithromycin [From Zithromax] Allergy Intermediate Unknown Verified 10/12/20 12:43 Iodinated Contrast Media Allergy Intermediate Unknown Verified 10/12/20 12:43 iodine Allergy Intermediate Unknown Verified 10/12/20 12:43 levofloxacin [From Levaquin] Allergy Intermediate Unknown Verified 10/12/20 12:43 moxifloxacin Allergy Intermediate Unknown Verified 10/12/20 12:43 Penicillins Allergy Intermediate Unknown Verified 10/12/20 12:43 vancomycin Allergy Intermediate Unknown Verified 10/12/20 12:43 Family History Father , 72 Cancer bladder and pancreas Atrial fibrillation Mother , 67 Myocardial infarction Diabetes Hypertension Cancer throat Surgical History History of coronary artery stent placement (03/06/14) Social History Smoking Status: Light Smoker (<10/day) alcohol intake: never substance use type: does not use caffeine: Yes (Occasionally) ROS ROS Narrative All review of systems were negative except as mentioned above in the history of present illness and the other review of systems. Physical Exam Narrative Up in the side of the bed on nonrebreather. Speaking full sentences. No demonstrated conversational dyspnea nor respiratory distress. Const alert General Appearance: cooperative HEENT normocephalic and head/scalp atraumatic Eyes Eyes Narrative: No icterus Extremity normal to inspection Skin no rashes or lesions noted and no wounds Psych affect normal Lab / Micro Data Attestation: I reviewed the patient's lab results. Lab results narrative: Chest x-ray personally reviewed and showed pulmonary vascular congestion. Unchanged from previous Result Diagrams: 10/12/20 12:55 10/12/20 12:55 Labs: Laboratory Results - last 24 hr 10/12/20 10/12/20 10/12/20 12:55 12:55 12:55 WBC 13.5 H RBC 5.57 H Hgb 16.4 H Hct 51.9 H MCV 93.2 MCH 29.4 MCHC 31.6 L RDW Std Deviation 47.2 H RDW Coeff of Gurvinder 13.9 Plt Count 183 MPV 11.2 Immature Gran % (Auto) 0.400 Neut % (Auto) 75.9 H Lymph % (Auto) 16.4 L [place] % (Auto) 7.1 Eos % (Auto) 0.1 Baso % (Auto) 0.1 Absolute Neuts (auto) 10.2 H Absolute Lymphs (auto) 2.21 Nucleated RBC % 0 Sodium 140 Potassium 3.5 Chloride 106 Carbon Dioxide 28.0 Anion Gap 6 BUN 7 Creatinine 0.73 Estim Creat Clear Calc 61.07 Est GFR (MDRD) Af Amer 106 Est GFR (MDRD) Non-Af 87 BUN/Creatinine Ratio 9.6 L Glucose 163 H Calcium 9.4 Magnesium 1.5 L Troponin I High Sens 95.4 H* B-Natriuretic Peptide 133.8 H Micro: Microbiology 10/12/20 13:10 SARS-CoV-2 Antigen (Rapid) - Final Mucosa - Nose Radiology Impression Chest X-Ray 10/12/20 13:45 IMPRESSION: Stable enlargement of the pulmonary arteries bilaterally with increased markings at the lung bases suggestive of scarring. Stable nodular densities in the right upper lobe. Electronically Signed: Mario De Los Santos MD at 14:27 EDT , Service support , Charges/Coding Visit Charges Office Visits / Consults: [id number] OP Consult L3
--- NOTE | 2020-10-12 17:13 | NURSING ---
CALLED [facility] TRANSFER LINE TO START TRANSFER [id number] TALKED TO ROSA ELENA
--- NOTE | 2020-10-12 17:14 | NURSING ---
[id number] MAURY , CRITICAL CARE, CALLED AND TALKED TO DR DENNIS
== END 2020-10-12 21:30 | disposition other institution (70) ==
PROVIDERS: Emergency Provider Emergency Medicine; PCP Family Medicine Geriatric Medicine
DX: J44.1 Chronic obstructive pulmonary disease with (acute) exacerbation (principal); J96.21 Acute and chronic respiratory failure with hypoxia; R79.89 Other specified abnormal findings of blood chemistry; I27.21 Secondary pulmonary arterial hypertension; I25.10 Atherosclerotic heart disease of native coronary artery without angina pectoris; I11.0 Hypertensive heart disease with heart failure; I50.42 Chronic combined systolic (congestive) and diastolic (congestive) heart failure; K21.9 Gastro-esophageal reflux disease without esophagitis; E78.5 Hyperlipidemia, unspecified; I48.0 Paroxysmal atrial fibrillation; E11.9 Type 2 diabetes mellitus without complications; F17.200 Nicotine dependence, unspecified, uncomplicated; Z99.81 Dependence on supplemental oxygen; Z79.84 Long term (current) use of oral hypoglycemic drugs; Z79.51 Long term (current) use of inhaled steroids; Z79.899 Other long term (current) drug therapy
CPT/HCPCS: 71045; 80048; 83735; 83880; 84484; 85025; 87426; 93005; 94640; 96365; 96375; 99251; 99285; J7050; A4216; G0463

== ENCOUNTER → 2020-10-25 16:04 | Outpatient (CLI) | payer MEDICARE, SELFPAY ==
[2020-10-12 12:38] VITALS: BMI 30.4
--- NOTE | 2020-10-25 16:16 | CT_ITS ---
STUDY: CT ABDOMEN AND PELVIS WITHOUT CONTRAST REASON FOR EXAM: Female, 59 years old. UNSPECIFIED ABD PAIN RADIATION DOSAGE (If Supplied By Facility): CTDIvol = ( 9.79 ) mGy, DLP = ( 435.23 ) mGycm TECHNIQUE: Transaxial images were obtained from the dome of the diaphragm to the symphysis pubis without oral contrast, and without intravenous contrast. Sagittal and coronal images were reconstructed. Individualized dose optimization techniques were used for this CT. COMPARISON: None. FINDINGS: The visualized lung bases are unremarkable. The visualized portions of the heart are within normal limits. Normal liver. Normal gallbladder and extrahepatic biliary system. Normal spleen. Normal pancreas. Normal bilateral adrenal glands. Normal right kidney. Normal left kidney. Normal visualized stomach. Normal small intestine. Normal colon. The appendix is visualized and appears normal. There is diffuse atherosclerotic calcification of the abdominal aorta, without a demonstrated aneurysm. Normal inferior vena cava. Normal retroperitoneum. Normal urinary bladder. Normal abdominal wall. Mild dextroscoliosis lumbar spine with degenerative disc disease. CT/Abdomen/Pelvis without Cont IMPRESSION: Normal unenhanced CT of the abdomen and pelvis. Electronically Signed: Ha Mina MD at 16:32 EDT Tel , Service support ,
== END ==
LOC: CT 16:06
PROVIDERS: PCP Family Medicine Geriatric Medicine; Referring Provider Family Medicine Geriatric Medicine; Visit Provider Family Medicine Geriatric Medicine
DX: R10.9 Unspecified abdominal pain (principal)
CPT/HCPCS: 74176

== ENCOUNTER → 2020-10-26 10:21 | Outpatient (CLI) | payer MEDICARE, SELFPAY ==
[2020-10-12 12:38] VITALS: BMI 30.4
--- NOTE | 2020-10-26 10:31 | RAD_ITS ---
STUDY: X-RAY - LUMBOSACRAL SPINE REASON FOR EXAM: Female, 59 years old. LOW BACK PAIN TECHNIQUE: 7 view(s) of the lumbosacral spine were obtained. COMPARISON: None FINDINGS: Normal lumbar lordosis. Mild dextroscoliosis centered at L3. There is normal alignment of the vertebrae. No subluxation on the flexion or extension views to suggest instability. There is multilevel endplate spondylosis of the lumbar vertebrae. There is multi-level degenerative disc disease with multi-level disc space narrowing. Mild loss of height of the L2 vertebral body consistent with a mild compression fracture. This may be acute, subacute, or chronic and correlation with MRI would be useful. Normal bilateral sacral ala, sacroiliac joints, and visualized sacrum. Normal visualized soft tissue structures. RAD/L/S Spine Comp/w Bending Views IMPRESSION: 1. Mild compression fracture of L2 which may be acute, subacute, or chronic and clinical correlation and MRI may be useful. 2. Mild dextro scoliosis with diffuse degenerative disc disease. MRI would be useful. Electronically Signed: Ha Mina MD at 12:01 EDT Tel , Service support ,
== END ==
LOC: RAD 10:23
PROVIDERS: PCP Family Medicine Geriatric Medicine; Referring Provider Family Medicine Geriatric Medicine; Visit Provider Family Medicine Geriatric Medicine
DX: M54.5 Low back pain (principal)
CPT/HCPCS: 72114

== ENCOUNTER → 2020-10-29 09:16 | Outpatient (CLI) | payer MEDICARE, SELFPAY ==
[2020-10-12 12:38] VITALS: BMI 30.4
--- NOTE | 2020-10-29 09:35 | US_ITS ---
STUDY: ABDOMINAL ULTRASOUND - RIGHT UPPER QUADRANT REASON FOR VISIT: Female, 59 years old UNSPECIFIED ABD PAIN TECHNIQUE: Ultrasound evaluation of the right upper quadrant was performed with real-time and static croft-scale imaging. TECHNICAL QUALITY: Limited. Examination limited due to the patient?s condition. COMPARISON: None. FINDINGS: Liver: The liver measures 14.2 cm. There is normal echogenicity of the liver. The bile ducts are within normal limits. There is hepatic color flow. The direction of portal flow is hepatopetal. There is no demonstrated mass lesion. Gallbladder: Normal distended gallbladder. The gallbladder wall measures 1.9 mm. There is a negative sonographic Aguilar''s sign. There is no pericholecystic fluid. There are no gallstones. Common Bile Duct (C.B.D.): The common bile duct measures 3 mm. Pancreas: There is nonvisualization of the pancreas. Right Kidney: Normal size of the right kidney. The right kidney measures 10.4 cm x 5.3 cm x 5.1 cm. Normal renal cortex. The right cortex measures 1.2 cm. There is no demonstrated renal mass or cyst. There is no right hydronephrosis. US/Abdomen Limited IMPRESSION: Normal right upper quadrant ultrasound examination. Electronically Signed: Mario De Los Santos MD at 14:51 EDT , Service support ,
== END ==
LOC: US 09:17
PROVIDERS: PCP Family Medicine Geriatric Medicine; Referring Provider Family Medicine Geriatric Medicine; Visit Provider Family Medicine Geriatric Medicine
DX: R10.9 Unspecified abdominal pain (principal)
CPT/HCPCS: 76705

== ENCOUNTER → 2020-11-20 13:55 | Outpatient (CLI) | payer MEDICARE, SELFPAY ==
[2020-10-12 12:38] VITALS: BMI 30.4
[2020-11-20 20:25] LABS: Absolute Lymphocyte Count 1.65 X10^3/uL (0.83-4.51); Absolute Neutrophil Count 7.3 X10^3/uL (2.0-7.7); Basophil# 0.04 X10^3/uL; Basophil% 0.4 % (0-1); Eosinophil# 0.01 X10^3/uL; Eosinophils% 0.1 % (0-5); Hematocrit 51.4 % (37-47); Hemoglobin 16.4 g/dL (12.0-15.0); Lymphocyte # 1.65 X10^3/ul (0.83-4.51); Lymphocyte % 16.4 % (19-41); Mean Corp Hgb Conc 31.9 g/dL (32-36); Mean Corpuscular Hgb 28.9 pg (27.0-32.0); Mean Corpuscular Volume 90.7 fL (81-99); Mean Platelet Vol. 11.8 fl (6.2-12.0); Monocyte# 0.99 X10^3/uL; Monocyte% 9.9 % (0-10); NRBC Flagged by Analyzer 0 % (0-5); Neutrophil % 72.7 % (47-70); Platelet Count 232 K/mm3 (150-450); RBC Distribution Width CV 15.6 % (11.6-14.6); RBC Distribution Width SD 50.6 fl (35.1-43.9); Red Blood Count 5.67 M/mm3 (4.2-5.4)
[2020-11-20 20:42] LABS: ALB/GLOB Ratio 0.9 RATIO (0.9-2.4); AST(SGOT) 21 U/L (15-37); Alanine Aminotransfer ALT/SGPT 25 U/L (13-56); Albumin, Serum 3.5 g/dL (3.2-5.0); Alkaline Phosphatase 107 U/L (45-117); Anion Gap 8 (5-15); BUN 12 mg/dL (7-18); Calcium,Total 9.7 mg/dL (8.5-10.1); Chloride 97 mmol/L (98-107); Creatinine, Serum 0.75 mg/dL (0.55-1.02); EST Glomerular Filtration Rate 85 mL/min (>60); Est Glom Filt Rate - Afr Amer 102 mL/min (>60); Globulin 3.7 g/dL (2.2-4.2); Glucose 213 mg/dL (74-106); Potassium 2.9 mmol/L (3.5-5.1); Protein, Total 7.2 g/dL (6.4-8.2); Sodium Level 137 mmol/L (136-145); Thyroid Stim Hormone (TSH) 1.91 uIU/mL (0.358-3.74)
[2020-11-20 21:07] LABS: Vitamin D,25 Hydroxy 27.5 ng/mL
== END ==
PROVIDERS: PCP Family Medicine Geriatric Medicine; Visit Provider Family Medicine Geriatric Medicine
DX: E11.65 Type 2 diabetes mellitus with hyperglycemia (principal); E55.9 Vitamin D deficiency, unspecified; I10 Essential (primary) hypertension
CPT/HCPCS: 36415; 80053; 82306; 84443; 85025

== ENCOUNTER → 2020-11-30 10:04 | Outpatient (CLI) | payer MEDICARE, SELFPAY ==
[2020-11-30 12:08] LABS: Anion Gap 7 (5-15); BUN 12 mg/dL (7-18); BUN/Creat Ratio 27.3 RATIO (10-20); Calcium,Total 9.3 mg/dL (8.5-10.1); Chloride 106 mmol/L (98-107); Creatinine, Serum 0.44 mg/dL (0.55-1.02); EST Glomerular Filtration Rate 157 mL/min (>60); Est Glom Filt Rate - Afr Amer 189 mL/min (>60); Glucose 125 mg/dL (74-106); Potassium 3.8 mmol/L (3.5-5.1); Sodium Level 137 mmol/L (136-145)
== END ==
PROVIDERS: PCP Family Medicine Geriatric Medicine; Visit Provider Family Medicine Geriatric Medicine
DX: E87.6 Hypokalemia (principal)
CPT/HCPCS: 36415; 80048

== ENCOUNTER → 2020-12-07 | Outpatient (CLI) | payer MEDICARE, SELFPAY ==
[2020-12-11 20:46] LABS: Fats, Neutral Normal (.); Fats, Total Normal (.)
== END | disposition home or self-care (01) ==
LOC: LABSPEC 11:33
PROVIDERS: PCP Family Medicine Geriatric Medicine; Referring Provider Family Medicine Geriatric Medicine; Visit Provider Family Medicine Geriatric Medicine
DX: K86.81 Exocrine pancreatic insufficiency (principal)
CPT/HCPCS: 82705

== ENCOUNTER → 2020-12-10 16:15 | Outpatient (CLI) | payer MEDICARE, SELFPAY ==
[2020-10-12 12:38] VITALS: BMI 30.4
--- NOTE | 2020-12-10 16:17 | BI_ITS ---
MAMMOGRAPHY - BILATERAL SCREENING 3-D TOMOSYNTHESIS REASON FOR EXAM: Female, 59 years old. SCREENING PERTINENT HISTORY: No significant family history. TECHNIQUE: 2-D mammograms and 3-D Tomosynthesis of the breast (s) were performed. CAD was performed. COMPARISON: 03/28/2019 FINDINGS: The breast composition is composed of scattered fibroglandular density. Scattered benign calcifications are seen. No dense spiculated masses or suspicious microcalcifications are identified. No architectural distortion is identified. There is no skin thickening or retraction. There has been no significant change since the prior study. BI/SCRN MAMM (CAD)W/ALVIN BILAT IMPRESSION: No mammographic signs of malignancy. Routine yearly mammograms recommended. ASSESSMENT CATEGORY: BIRADS Category 1: Negative. A letter regarding these results will be sent to the patient by the facility within 30 days. FOLLOW UP RECOMMENDATION: Yearly follow up mammogram recommended. (A) Approximately 10% of breast cancers are not detected by mammography. A normal mammogram should not delay biopsy of a clinically suspicious abnormality. Electronically Signed: Ha Mina MD at 9:21 EDT Tel , Service support ,
== END ==
PROVIDERS: PCP Family Medicine Geriatric Medicine; Referring Provider Family Medicine Geriatric Medicine; Visit Provider Family Medicine Geriatric Medicine
DX: Z12.31 Encounter for screening mammogram for malignant neoplasm of breast (principal)
CPT/HCPCS: 77063; 77067

== ENCOUNTER → 2021-01-15 11:31 | Outpatient (CLI) | payer MEDICARE, SELFPAY ==
--- NOTE | 2021-01-15 11:36 | RAD_ITS ---
INDICATION: COPD EXAMINATION/TECHNIQUE: X-RAY - XR Chest 2 Views COMPARISON: 09/21/2020 chest x-ray and CT scan of the chest obtained 11/03/2019. FINDINGS: LINES/DEVICES: None. LUNGS: Mild bilateral hilar prominence, prominence of the pulmonary vessels is visualized bilaterally consistent with the patient''s diagnosis of pulmonary hypertension. Mild prominence of the interstitial lung markings is visualized, biapical prominence is also seen, mild haziness overlying the left lower lung field with blunting of the left costophrenic angle visualized findings demonstrate no significant change in comparison to the prior study. MEDIASTINUM AND CARDIOVASCULAR STRUCTURES: Mild prominence of the cardiac mediastinal silhouette demonstrates no significant change in comparison to the prior study. BONES AND SOFT TISSUES: Bone mineralization extensive degenerative changes. Vertebral augmentation in an upper lumbar vertebral body. RAD/Chest PA and Lateral IMPRESSION: Mild prominence of the pulmonary vasculature with bilateral hilar prominence consistent with the patient''s diagnosis of pulmonary hypertension demonstrating no significant change in comparison to the prior study. Biapical prominence suggestive of COPD changes. Electronically Signed: Tyrone Obrien MD at 15:08 EDT Tel , Service support ,
[2021-01-15 12:36] LABS: Absolute Lymphocyte Count 1.96 X10^3/uL (0.83-4.51); Absolute Neutrophil Count 6.3 X10^3/uL (2.0-7.7); Basophil# 0.04 X10^3/uL; Basophil% 0.4 % (0-1); Eosinophil# 0.01 X10^3/uL; Eosinophils% 0.1 % (0-5); Hematocrit 49.9 % (37-47); Hemoglobin 15.5 g/dL (12.0-15.0); Lymphocyte # 1.96 X10^3/ul (0.83-4.51); Lymphocyte % 21.9 % (19-41); Mean Corp Hgb Conc 31.1 g/dL (32-36); Mean Corpuscular Hgb 27.5 pg (27.0-32.0); Mean Corpuscular Volume 88.6 fL (81-99); Mean Platelet Vol. 10.7 fl (6.2-12.0); Monocyte# 0.65 X10^3/uL; Monocyte% 7.3 % (0-10); NRBC Flagged by Analyzer 0 % (0-5); Neutrophil # 6.26 X10^3/uL (2.7-7.7); Platelet Count 265 K/mm3 (150-450); RBC Distribution Width CV 15.3 % (11.6-14.6); Red Blood Count 5.63 M/mm3 (4.2-5.4)
== END ==
LOC: RAD 11:32
PROVIDERS: PCP Family Medicine Geriatric Medicine; Referring Provider Internal Medicine Pulmonary Disease; Visit Provider Internal Medicine Pulmonary Disease
DX: J44.9 Chronic obstructive pulmonary disease, unspecified (principal)
CPT/HCPCS: 36415; 71046; 85025

== ENCOUNTER → 2021-03-04 15:16 | Outpatient (CLI) | payer MEDICARE, SELFPAY ==
[2021-03-04 15:40] LABS: Absolute Lymphocyte Count 2.41 X10^3/uL (0.83-4.51); Absolute Neutrophil Count 7.4 X10^3/uL (2.0-7.7); Basophil# 0.04 X10^3/uL; Basophil% 0.4 % (0-1); Eosinophil# 0.03 X10^3/uL; Eosinophils% 0.3 % (0-5); Hematocrit 48.3 % (37-47); Hemoglobin 15.2 g/dL (12.0-15.0); Lymphocyte # 2.41 X10^3/ul (0.83-4.51); Lymphocyte % 22.7 % (19-41); Mean Corp Hgb Conc 31.5 g/dL (32-36); Mean Corpuscular Hgb 28.2 pg (27.0-32.0); Mean Corpuscular Volume 89.6 fL (81-99); Monocyte# 0.73 X10^3/uL; Monocyte% 6.9 % (0-10); NRBC Flagged by Analyzer 0 % (0-5); Neutrophil # 7.36 X10^3/uL (2.7-7.7); Neutrophil % 69.4 % (47-70); Platelet Count 215 K/mm3 (150-450); RBC Distribution Width CV 17.6 % (11.6-14.6); RBC Distribution Width SD 57.6 fl (35.1-43.9); Red Blood Count 5.39 M/mm3 (4.2-5.4); White Blood Count 10.6 K/mm3 (4.4-11.0)
[2021-03-04 16:06] LABS: ALB/GLOB Ratio 0.8 RATIO (0.9-2.4); AST(SGOT) 18 U/L (15-37); Alanine Aminotransfer ALT/SGPT 13 U/L (13-56); Alkaline Phosphatase 73 U/L (45-117); Anion Gap 6 (5-15); BUN 5 mg/dL (7-18); BUN/Creat Ratio 9.3 RATIO (10-20); Calcium,Total 9.4 mg/dL (8.5-10.1); Chloride 101 mmol/L (98-107); Creatinine, Serum 0.54 mg/dL (0.55-1.02); EST Glomerular Filtration Rate 124 mL/min (>60); Est Glom Filt Rate - Afr Amer 150 mL/min (>60); Globulin 3.8 g/dL (2.2-4.2); Glucose 106 mg/dL (74-106); Potassium 3.8 mmol/L (3.5-5.1); Protein, Total 6.8 g/dL (6.4-8.2); Sodium Level 137 mmol/L (136-145); Thyroid Stim Hormone (TSH) 1.59 uIU/mL (0.358-3.74)
== END ==
PROVIDERS: PCP Family Medicine Geriatric Medicine; Visit Provider Family Medicine Geriatric Medicine
DX: E11.65 Type 2 diabetes mellitus with hyperglycemia (principal); I10 Essential (primary) hypertension
CPT/HCPCS: 36415; 80053; 84443; 85025

== ENCOUNTER → 2021-03-12 16:11 | Outpatient (CLI) | payer MEDICARE, SELFPAY ==
--- NOTE | 2021-03-12 16:20 | RAD_ITS ---
STUDY: X-RAY - ABDOMEN/PELVIS REASON FOR EXAM: Female, 60 years old. Diarrhea since November. Lower abdominal pain. Back pain. TECHNIQUE: AP and prone views of the abdomen were performed (the patient could not lie on her back). COMPARISON: CT of the abdomen and pelvis, 10/25/2020. FINDINGS: Is mild interstitial changes at the lung bases. The heart is normal in size. There is prominence of the right hilum consistent with the large right pulmonary vein seen on the CT scan of 11/03/2019 There is an unremarkable bowel gas pattern. Air is seen throughout the colon. There is no small bowel dilatation or evidence of obstruction. There is no demonstrated free abdominal air. The visualized liver, spleen and kidneys are grossly normal in size and morphology. Normal soft tissue structures. There are degenerative changes of the lumbar spine with evidence of L2 kyphoplasty. RAD/Abd Inc Decub and/or Erect IMPRESSION: 1. No evidence for acute intra-abdominal process. 2. Interval L2 kyphoplasty. Electronically Signed: Rajat Campbell DO at 16:56 EST Tel [phone], Service support ,
== END ==
LOC: RAD 16:13
PROVIDERS: PCP Family Medicine Geriatric Medicine; Visit Provider Family Medicine Geriatric Medicine
DX: R19.7 Diarrhea, unspecified (principal)
CPT/HCPCS: 74019

== ENCOUNTER → 2021-03-13 10:27 | Outpatient (CLI) | payer MEDICARE, SELFPAY | PROVIDERS: PCP Family Medicine Geriatric Medicine; Visit Provider Family Medicine Geriatric Medicine | DX: R19.7 Diarrhea, unspecified (principal) | CPT/HCPCS: 82274; 83630; 87177; 87209; 87493; 87506 ==

== ENCOUNTER 2021-06-03 11:17 | Outpatient (CLI) | payer MEDICARE, SELFPAY ==
[2021-06-03 12:18] LABS: Absolute Lymphocyte Count 2.64 X10^3/uL (0.83-4.51); Absolute Neutrophil Count 5.7 X10^3/uL (2.0-7.7); Basophil# 0.05 X10^3/uL; Basophil% 0.5 % (0-1); Eosinophil# 0.04 X10^3/uL; Eosinophils% 0.4 % (0-5); Hematocrit 47.5 % (37-47); Hemoglobin 15.9 g/dL (12.0-15.0); Lymphocyte # 2.64 X10^3/ul (0.83-4.51); Mean Corp Hgb Conc 33.5 g/dL (32-36); Mean Corpuscular Hgb 29.9 pg (27.0-32.0); Mean Corpuscular Volume 89.3 fL (81-99); Mean Platelet Vol. 10.8 fl (6.2-12.0); Monocyte# 0.62 X10^3/uL; Monocyte% 6.8 % (0-10); NRBC Flagged by Analyzer 0 % (0-5); Neutrophil # 5.73 X10^3/uL (2.7-7.7); Neutrophil % 63.1 % (47-70); Platelet Count 228 K/mm3 (150-450); RBC Distribution Width CV 14.6 % (11.6-14.6); Red Blood Count 5.32 M/mm3 (4.2-5.4); White Blood Count 9.1 K/mm3 (4.4-11.0)
[2021-06-03 13:20] LABS: ALB/GLOB Ratio 0.8 RATIO (0.9-2.4); AST(SGOT) 15 U/L (15-37); Alanine Aminotransfer ALT/SGPT 12 U/L (13-56); Albumin, Serum 3.3 g/dL (3.2-5.0); Alkaline Phosphatase 64 U/L (45-117); Anion Gap 8 (5-15); BUN 9 mg/dL (7-18); Chloride 105 mmol/L (98-107); Creatinine, Serum 0.56 mg/dL (0.55-1.02); EST Glomerular Filtration Rate 117 mL/min (>60); Est Glom Filt Rate - Afr Amer 142 mL/min (>60); Globulin 3.9 g/dL (2.2-4.2); Glucose 125 mg/dL (74-106); Potassium 3.5 mmol/L (3.5-5.1); Protein, Total 7.2 g/dL (6.4-8.2); Sodium Level 139 mmol/L (136-145); Thyroid Stim Hormone (TSH) 1.11 uIU/mL (0.358-3.74)
== END 2021-06-03 23:59 | disposition home or self-care (01) ==
LOC: POLAB3 11:18
PROVIDERS: PCP Family Medicine Geriatric Medicine; Visit Provider Family Medicine Geriatric Medicine
DX: E11.65 Type 2 diabetes mellitus with hyperglycemia (principal); I10 Essential (primary) hypertension
CPT/HCPCS: 36415; 80053; 84443; 85025

== ENCOUNTER → 2021-08-22 | Outpatient (CLI) | payer MEDICARE, SELFPAY ==
--- NOTE | 2021-08-22 14:02 | RAD_ITS ---
STUDY: X-RAY - LUMBAR SPINE REASON FOR EXAM: Female, 60 years old. LOW BACK PAIN TECHNIQUE: view(s) of the lumbar spine were obtained. COMPARISON: None FINDINGS: Normal lumbar lordosis. There is no substantial scoliosis. There is a normal alignment of the vertebrae. Normal vertebral bodies and endplates. Normal disc space heights. There is a compression fracture of the body of L2 with post vertebral plasty changes. The soft tissue structures are unremarkable. RAD/Lumbar Spine 2 or 3 Views IMPRESSION: Postvertebroplasty changes at L2. Electronically Signed: Abram Jon MD at 2:19 EDT ,
[2021-08-22 16:42] LABS: Absolute Lymphocyte Count 2.08 X10^3/uL (0.83-4.51); Absolute Neutrophil Count 7.4 X10^3/uL (2.0-7.7); Basophil# 0.05 X10^3/uL; Basophil% 0.5 % (0-1); Eosinophil# 0.04 X10^3/uL; Eosinophils% 0.4 % (0-5); Hematocrit 49.2 % (37-47); Hemoglobin 15.7 g/dL (12.0-15.0); Lymphocyte # 2.08 X10^3/ul (0.83-4.51); Lymphocyte % 20.1 % (19-41); Mean Corp Hgb Conc 31.9 g/dL (32-36); Mean Corpuscular Hgb 28.7 pg (27.0-32.0); Mean Corpuscular Volume 89.9 fL (81-99); Mean Platelet Vol. 11.4 fl (6.2-12.0); Monocyte# 0.71 X10^3/uL; Monocyte% 6.9 % (0-10); NRBC Flagged by Analyzer 0 % (0-5); Neutrophil # 7.44 X10^3/uL (2.7-7.7); Neutrophil % 71.8 % (47-70); Platelet Count 253 K/mm3 (150-450); RBC Distribution Width CV 13.3 % (11.6-14.6); RBC Distribution Width SD 43.9 fl (35.1-43.9); Red Blood Count 5.47 M/mm3 (4.2-5.4); White Blood Count 10.4 K/mm3 (4.4-11.0)
[2021-08-22 17:05] LABS: Anion Gap 9 (5-15); BUN 18 mg/dL (7-18); BUN/Creat Ratio 26.5 RATIO (10-20); Chloride 101 mmol/L (98-107); Creatinine, Serum 0.68 mg/dL (0.55-1.02); EST Glomerular Filtration Rate 95 mL/min (>60); Est Glom Filt Rate - Afr Amer 114 mL/min (>60); Glucose 99 mg/dL (74-106); Potassium 3.8 mmol/L (3.5-5.1); Sodium Level 138 mmol/L (136-145)
[2021-08-22 17:19] LABS: Hemoglobin A1c 6.6 % (3.8-5.6)
== END | disposition home or self-care (01) ==
PROVIDERS: PCP Family Medicine Geriatric Medicine; Referring Provider Family Medicine Geriatric Medicine; Visit Provider Family Medicine Geriatric Medicine
DX: M54.50 Low back pain, unspecified (principal); N39.0 Urinary tract infection, site not specified; R73.9 Hyperglycemia, unspecified
CPT/HCPCS: 36415; 72100; 80048; 83036; 85025; 87086; 87088

== ENCOUNTER 2021-09-04 09:53 | Emergency (ER) | payer MEDICARE, SELFPAY ==
[2021-09-04] VITALS (13 sets, daily range): BP systolic 94–149; BP diastolic 52–99; PULSE 49–76; RESP 16–23; TEMP 37.2; O2SAT 79–92; BMI 20.9
--- NOTE | 2021-09-04 10:00 | EKG12_ITS ---
Test Reason : REPEAT Blood Pressure : / mmHG Vent. Rate : 054 BPM Atrial Rate : 083 BPM P-R Int : 000 ms QRS Dur : 140 ms QT Int : 550 ms P-R-T Axes : 080 104 083 degrees QTc Int : 521 ms Sinus rhythm with complete heart block and Wide QRS rhythm with occasional Premature ventricular comp lexes Left ventricular hypertrophy with QRS widening and repolarization abnormality Abnormal ECG Confirmed by LYNDA FLAHERTY, MARSHA ([id number]), editor trade journal LILY BULLARD ([id number]) on 09/05/2021 11:27:22 AM Referred By: BARBI Confirmed By:MARSHA HOWELL MD
--- NOTE | 2021-09-04 10:10 | EKG12_ITS ---
Test Reason : SOB Blood Pressure : / mmHG Vent. Rate : 065 BPM Atrial Rate : 065 BPM P-R Int : 368 ms QRS Dur : 132 ms QT Int : 488 ms P-R-T Axes : 077 104 038 degrees QTc Int : 507 ms Sinus rhythm with AV dissociation Left ventricular hypertrophy with QRS widening and repolarization abnormality Abnormal ECG Confirmed by LYNDA FLAHERTY, MARSHA ([id number]), newspaper editor LILY BULLARD ([id number]) on 09/05/2021 11:27:01 AM Referred By: BARBI Confirmed By:MARSHA HOWELL MD
--- NOTE | 2021-09-04 10:12 | ED.VIS.DYS ---
HPI History of Present Illness Chief Complaint: Shortness of Breath Detail of Chief Complaint: Shortness of breath and needs a pacemaker Onset/Context/Timing Onset: Today (Shortness of breath worse since last evening) Context: gradual Timing: Continuous Quality: Positive for Dyspnea on exertion, Orthopnea and Wheezing Current Severity: Mild Maximum Severity: Severe Worsened by: Exertion Relieved by: Nothing Associated Symptoms cough; Negative for rhinorrhea, post nasal drip, ear pain, fever, sore throat, subjective, chills, sweats, clear sputum, white sputum, yellow sputum or green sputum Chest Pain: Positive for Intermittent (Duration 20 minutes. 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 She has secondary pulmonary arterial hypertension as well. There is a history of paroxysmal atrial fibrillation. She is on Eliquis. She was on Coumadin. There is also history of myocardial infarction involving the inferior wall. Patient does endorse history of COPD and still smokes. Patient does have slight swelling of her legs. This is no different than baseline. She denies discoloration or asymmetry. PE Risk Factors: Negative for Cancer, OCP + Smoking + > 35, Prior DVT or PE, Recent immobilization, Recent surgery and Recent travel Prior similar symptoms: Yes Recent Illness/Hospitalization: Yes [facility] Medical History Acute and chronic respiratory failure with hypoxia Alcohol use Asthma Atherosclerosis of coronary artery of [place] heart without angina pectoris Back pain Cardiology follow-up encounter Chronic combined systolic and diastolic CHF (congestive heart failure) Chronic cough Congenital heart disease in adult COPD (chronic obstructive pulmonary disease) CPAP (continuous positive airway pressure) dependence Diabetes Diarrhea Elevated troponin Emphysema, unspecified Essential hypertension Forgetfulness GERD (gastroesophageal reflux disease) High cholesterol History of atrial fibrillation History of edema History of heart attack Hyperlipidemia Hypertension Hypoxemia Leg cramps Low iron Migraine headache Nicotine dependence Non-ischemic cardiomyopathy Old inferior wall myocardial infarction On home oxygen therapy Paroxysmal atrial fibrillation Restless leg syndrome Secondary pulmonary arterial hypertension Shortness of breath on exertion Single left ventricle Smoker Syncope Transposition of great arteries Type 2 diabetes mellitus without complication Wears glasses Weight loss Home Medications albuterol sulfate 90 mcg/actuation aerosol inhaler 2 puff INHALATION Q6H PRN 03/29/19 [History Last Taken 10/11/20] bumetanide 1 mg tablet 1 mg PO DAILY tab 03/29/19 [History Last Taken 10/11/20] metoprolol tartrate 25 mg tablet 12.5 mg PO MOTUWETHFRSA tab 03/29/19 [History Last Taken 10/12/20] rosuvastatin 20 mg tablet 20 mg PO DAILY 03/29/19 [History Last Taken 10/12/20] tadalafil 20 mg tablet 40 mg PO DAILY tab 03/29/19 [History Last Taken 10/12/20] omeprazole 20 mg capsule,delayed release 20 mg PO DAILY cap 05/04/19 [History Last Taken 10/12/20] pregabalin 75 mg capsule 75 mg PO BID cap 03/16/20 [History Last Taken 10/12/20] albuterol sulfate 2.5 mg INHALATION Q6H PRN ml 10/11/20 [History Last Taken 10/12/20] apixaban 5 mg tablet 5 mg PO BID #60 tab 08/20/21 [Rx Last Taken Unknown] dapagliflozin [Farxiga] 10 mg PO DAILY 09/04/21 [History Last Taken Unknown] micihuirnzg-uepvauwth-rqivkchj [Trelegy Ellipta] 1 inh INHALATION DAILY 09/04/21 [History Last Taken Unknown] megestrol 3.2 ml PO DAILY 09/04/21 [History Last Taken Unknown] metoprolol tartrate 25 mg PO GALARZA 09/04/21 [History Last Taken Unknown] potassium chloride 20 meq PO DAILY 09/04/21 [History Last Taken Unknown] roflumilast [Daliresp] 500 mcg PO DAILY 09/04/21 [History Last Taken Unknown] Allergy/AdvReac Type Severity Reaction Status Date / Time azithromycin [From Zithromax] Allergy Intermediate Unknown Verified 09/04/21 09:57 Iodinated Contrast Media Allergy Intermediate Unknown Verified 09/04/21 09:57 iodine Allergy Intermediate Unknown Verified 09/04/21 09:57 levofloxacin [From Levaquin] Allergy Intermediate Unknown Verified 09/04/21 09:57 moxifloxacin Allergy Intermediate Unknown Verified 09/04/21 09:57 Penicillins Allergy Intermediate Unknown Verified 09/04/21 09:57 vancomycin Allergy Intermediate Unknown Verified 09/04/21 09:57 Family History Father , 72 Cancer bladder and pancreas Atrial fibrillation Mother , 67 Myocardial infarction Diabetes Hypertension Cancer throat Arthritis Brother High blood cholesterol Heart disease Surgical History History of back surgery History of cardiac catheterization History of coronary artery stent placement (03/06/14) Social History (Updated 09/04/21 @ 10:[address] Ned Holt MD) household members: none Smoking Status: Light Smoker (<10/day) alcohol intake: never substance use type: does not use caffeine: Yes (Occasionally) ROS ROS ED Constitutional Constitutional ED: Denies chills, fever(s), sweats or weight loss Eyes Eyes: Denies blurry vision, change in vision or diplopia ENT ENT ED: Denies ear pain, rhinorrhea or sore throat Cardiovascular Cardiovascular: Reports orthopnea; Denies chest pain, palpitations, paroxysmal nocturnal dyspnea or racing heartbeat Respiratory/Chest Respiratory/Chest: Reports cough, dyspnea, dyspnea on exertion and orthopnea; Denies paroxysmal nocturnal dyspnea or sputum Gastrointestinal Gastrointestinal: Denies abdominal pain, constipation, diarrhea, nausea or vomiting Genitourinary Genitourinary ED: Denies dysuria, hematuria or urinary frequency Musculoskeletal Musculoskeletal: Denies arthralgias, myalgias or neck pain Integumentary Denies rash Neurologic Neurologic: Reports weakness; Denies headache(s) or paresthesias Endocrine Endocrinology: Denies polydipsia, polyphagia or polyuria Hematologic/Lymphatic Hematologic/Lymphatic: Reports easy bruising; Denies easy bleeding or lymphadenopathy EXAM Physical Exam Const Vital Signs: 09/04/21 09:54 09/04/21 10:06 09/04/21 10:12 Temperature 99.0 F 99.0 F Temperature Source Temporal Temporal Pulse Rate 76 76 Respiratory Rate 16 16 Respiratory Effort Short of Breath Respiratory Depth Shallow Respiratory Pattern Tachypnea Blood Pressure 149/54 H 149/54 H Blood Pressure Mean 85 85 Pulse Ox 79 79 89 Oxygen Delivery Method Nasal Cannula Nasal Cannula Nasal Cannula Oxygen Flow Rate (L/min) 5 12 12 Positive well nourished and well developed General Appearance ED: well developed; Negative for NAD or pallor HEENT Reports TM's clear, moist mucous membranes and other Question of central cyanosis with discoloration of lips. Nares patent. atraumatic Tympanic Membrane ED: Yes TM's clear Eyes PERRL and EOMs intact bilaterally General Eye ED: Negative for pale conjunctiva or scleral icterus Neck no lymphadenopathy, supple, no meningeal signs and no JVD General: Negative for tenderness Resp normal respiratory effort and clear to auscultation bilaterally Cardio regular rhythm, S1 normal heart sound, S2 normal heart sound and no murmurs; Negative for regular rate Rate: bradycardia GI non-tender, non-distended and no masses Auscultation: normoactive bowel sounds Palpation: soft Back/Spine no CVA tenderness and normal to inspection Extremity normal to inspection Extremity Narrative: There is no asymmetry. There is no discoloration. There is no leg vein distention, palpable cord sounds on the distribution deep venous system. General Extremety ED: Yes edema; Negative for tenderness or other findings General Extremity: edema; Negative for other findings Neuro oriented x3 and CN's II-XII intact bilaterally Josefa Coma Scale: document GCS findings Spontaneous Obeys Commands Oriented 15 Sensorium / Orientation: alert Psych mental status grossly normal Thought Process: normal thought process Skin no wounds General Skin Exam: Negative for jaundice or pallor Lesions: no lesions Rashes: no rashes MDM MDM MDM Narrative Medical decision making narrative: Patient was seen by cardiology yesterday. She was instructed yesterday to go to the emergency department. She apparently went out with a friend to have dinner. Her shortness of breath has gotten worse. The first EKG reveals frequent premature ventricular beats. CA interval is abnormal and suggestive of third-degree heart block. Patient's monitor now reveals third-degree heart block with no PVCs. Repeat EKG reveals third-degree heart block. Chest x-ray is obtained to evaluate for congestive heart failure. Appropriate blood work including rapid COVID. 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 Lab Data Attestation: I reviewed the patient's lab results. Lab results narrative: White count is slightly elevated. H&H is at baseline. Troponin is elevated 130. Last troponin obtained was October 2020 and was 95.4. Labs: Laboratory Results - last 24 hr 09/04/21 09/04/21 10:04 10:04 WBC 11.7 H RBC 5.54 H Hgb 15.7 H Hct 48.7 H MCV 87.9 MCH 28.3 MCHC 32.2 RDW Std Deviation 44.2 H RDW Coeff of Gurvinder 13.7 Plt Count 274 MPV 10.5 Immature Gran % (Auto) 0.300 Neut % (Auto) 65.1 Lymph % (Auto) 27.2 Meeker % (Auto) 6.8 Eos % (Auto) 0.3 Baso % (Auto) 0.3 Absolute Neuts (auto) 7.6 Absolute Lymphs (auto) 3.19 Nucleated RBC % 0 Sodium 141 Potassium 3.9 Chloride 112 H Carbon Dioxide 21.0 Anion Gap 8 BUN 12 Creatinine 0.65 Estim Creat Clear Calc 74.61 Est GFR (MDRD) Af Amer 121 Est GFR (MDRD) Non-Af 100 BUN/Creatinine Ratio 18.5 Glucose 160 H Calcium 9.3 Total Bilirubin 0.50 AST 27 ALT 32 Alkaline Phosphatase 88 Troponin I High Sens 130 H* Total Protein 6.7 Albumin 3.2 Globulin 3.5 Albumin/Globulin Ratio 0.9 Radiography Chest X-Ray - ED: 1 View and Read by ED Physician (Independently interpreted by me at 1024. There are significant chronic changes. There appears to be an infiltrate/increased interstitial markings peripheral left lower lobe compared to prior. There is no evidence of pneumothorax or effusion.) Diagnostic Testing: Clinical Impression(s) from Imaging Studies Chest X-Ray 09/04/21 10:19 IMPRESSION: 1. Stable exam. Electronically Signed: Yakov Kendall MD ([place]) at 10:30 EDT Reading Location ID and State: [address] [place] [address] , Service support , Rhythm Strip Rhythm Strip: Third-degree heart block Rate: 58 EKG Initial EKG: Attestation: I personally reviewed and interpreted this EKG as follows: Interpretation: - (Suspect third-degree heart block with a ventricular rate of 65. There is frequent premature beats noted. QRS duration 132 ms. QT duration 488 ms. [place] is normal. There is evidence of LVH.) Prior: Changed Treatment and Re-Evaluation Narrative: EKG that was obtained at 1011 reveals complete heart block with wide QRS complex and 1 premature ventricular beat noted. There is evidence of LVH. Heart rate is 54. QRS duration 140 ms. QT durations 550 ms with QTC of 521, which is prolonged. [place] is normal. Critical Care Time Critical Care Time: Yes Critical care time (excluding procedures): 30-74 minutes (33), Including time spent: (History, physical, documentation, review of prior records, interpretation of laboratory results and x-ray), Discussing w/Patient &/or Family/Talent Acquisition Administrator, Discussing w/Consultants and Arranging Admission or Transfer Discharge Plan Triage Chief Complaint: Shortness of Breath ED Provider: Ned Holt Dx/Rx/DC Orders Clinical Impression: Third degree heart block, Elevated troponin I level, Chronic hypoxemic respiratory failure, Essential hypertension, Single left ventricle, alf (current) use of anticoagulants, Non-ischemic cardiomyopathy Prescriptions: No Action omeprazole 20 mg capsule,delayed release(DR/EC) 20 mg PO DAILY RF: 0 metoprolol tartrate 25 mg tablet 12.5 mg PO MOTUWETHFRSA RF: 0 tadalafil 20 mg tablet 40 mg PO DAILY RF: 0 bumetanide 1 mg tablet 1 mg PO DAILY RF: 0 rosuvastatin 20 mg tablet 20 mg PO DAILY RF: 0 albuterol sulfate [Ventolin HFA] 90 mcg/actuation HFA aerosol inhaler 2 puff INHALATION Q6H PRN (Reason: COPD) RF: 0 pregabalin 75 mg capsule 75 mg PO BID RF: 0 albuterol sulfate 2.5 mg /3 mL (0.083 %) solution for nebulization 2.5 mg inhalation Q6H PRN (Reason: COPD) RF: 0 metoprolol tartrate 25 mg Tablet 25 mg PO GALARZA RF: 0 megestrol 625 mg/5 mL (125 mg/mL) Suspension 3.2 ml PO DAILY RF: 0 Daliresp 500 mcg Tablet 500 mcg PO DAILY RF: 0 Farxiga 10 mg Tablet 10 mg PO DAILY RF: 0 potassium chloride 20 mEq Tablet Extended Release 20 meq PO DAILY RF: 0 Trelegy Ellipta 100-62.5-25 mcg Blister With Device 1 inh INHALATION DAILY RF: 0 Eliquis 5 mg tablet 5 mg PO BID Qty: 60 RF: 11 Primary Care Provider: Adolfo Arreguin Chi Referrals: Adolfo Arreguin Chi, MD [Primary Care Provider] -
--- NOTE | 2021-09-04 10:19 | RAD_ITS ---
STUDY: X-RAY CHEST REASON FOR EXAM: Female, 60 years old. Dyspnea, bilateral rales TECHNIQUE: AP COMPARISON: 01/15/2021 FINDINGS: EKG leads project over the chest. There are interstitial fibrotic changes of the lungs. Parenchymal opacities in the bilateral lung bases stable. There is no demonstrated pleural abnormality. Normal size heart. Normal mediastinum and liza. There is prominence of the pulmonary hilar arteries without peripheral pulmonary vascular congestion, suggesting pulmonary hypertension. Atherosclerosis and tortuosity of the thoracic aorta. There is demineralization of the osseous structures. Normal visualized ribs, clavicles, and shoulders. There is no demonstrated abnormality of the visualized soft tissue structures of the upper abdomen. RAD/Chest 1 View (Portable) IMPRESSION: 1. Stable exam. Electronically Signed: Yakov Kendall MD ([place]) at 10:30 EDT ,
[2021-09-04 10:31] LABS: Absolute Lymphocyte Count 3.19 X10^3/uL (0.83-4.51); Absolute Neutrophil Count 7.6 X10^3/uL (2.0-7.7); Basophil# 0.04 X10^3/uL; Basophil% 0.3 % (0-1); Eosinophil# 0.04 X10^3/uL; Eosinophils% 0.3 % (0-5); Hematocrit 48.7 % (37-47); Hemoglobin 15.7 g/dL (12.0-15.0); Lymphocyte # 3.19 X10^3/ul (0.83-4.51); Lymphocyte % 27.2 % (19-41); Mean Corp Hgb Conc 32.2 g/dL (32-36); Mean Corpuscular Hgb 28.3 pg (27.0-32.0); Mean Corpuscular Volume 87.9 fL (81-99); Mean Platelet Vol. 10.5 fl (6.2-12.0); Monocyte% 6.8 % (0-10); NRBC Flagged by Analyzer 0 % (0-5); Neutrophil # 7.62 X10^3/uL (2.7-7.7); Neutrophil % 65.1 % (47-70); Platelet Count 274 K/mm3 (150-450); RBC Distribution Width CV 13.7 % (11.6-14.6); RBC Distribution Width SD 44.2 fl (35.1-43.9); Red Blood Count 5.54 M/mm3 (4.2-5.4); White Blood Count 11.7 K/mm3 (4.4-11.0)
[2021-09-04 10:49] LABS: ALB/GLOB Ratio 0.9 RATIO (0.9-2.4); AST(SGOT) 27 U/L (15-37); Alanine Aminotransfer ALT/SGPT 32 U/L (13-56); Albumin, Serum 3.2 g/dL (3.2-5.0); Alkaline Phosphatase 88 U/L (45-117); Anion Gap 8 (5-15); BUN 12 mg/dL (7-18); BUN/Creat Ratio 18.5 RATIO (10-20); Calcium,Total 9.3 mg/dL (8.5-10.1); Chloride 112 mmol/L (98-107); Creatinine, Serum 0.65 mg/dL (0.55-1.02); EST Glomerular Filtration Rate 100 mL/min (>60); Est Glom Filt Rate - Afr Amer 121 mL/min (>60); Estimated Creatinine Clearance 74.61 ml/min; Globulin 3.5 g/dL (2.2-4.2); Glucose 160 mg/dL (74-106); Potassium 3.9 mmol/L (3.5-5.1); Protein, Total 6.7 g/dL (6.4-8.2); Sodium Level 141 mmol/L (136-145); Troponin-I HS 130 pg/mL (3.0-54.0)
--- NOTE | 2021-09-04 13:29 | NURSING ---
[facility] GAVE AN ETA OF 20 MINUTES AND JUST CALLED AND SAID IT WOULD BE ANOTHER 30 MINUTES. ETA SHOULD BE 14:00
== END 2021-09-04 14:30 | disposition short-term general hospital (02) ==
PROVIDERS: Emergency Provider Emergency Medicine; PCP Family Medicine Geriatric Medicine; Visit Provider Emergency Medicine
DX: I44.2 Atrioventricular block, complete (principal); I11.0 Hypertensive heart disease with heart failure; I50.42 Chronic combined systolic (congestive) and diastolic (congestive) heart failure; I42.8 Other cardiomyopathies; J96.11 Chronic respiratory failure with hypoxia; I48.0 Paroxysmal atrial fibrillation; R77.8 Other specified abnormalities of plasma proteins; E78.00 Pure hypercholesterolemia, unspecified; F17.200 Nicotine dependence, unspecified, uncomplicated; I25.10 Atherosclerotic heart disease of native coronary artery without angina pectoris; I25.2 Old myocardial infarction; Z95.5 Presence of coronary angioplasty implant and graft; Z79.01 Long term (current) use of anticoagulants; Z79.899 Other long term (current) drug therapy; Z95.0 Presence of cardiac pacemaker; Z99.81 Dependence on supplemental oxygen
CPT/HCPCS: 71045; 80053; 84484; 85025; 87811; 93005; 99285; A4216

== ENCOUNTER → 2021-10-18 | Outpatient (REF) | payer SELFPAY ==
[2021-10-18 11:37] LABS: Absolute Neutrophil Count 7.3 X10^3/uL (2.0-7.7); Basophil# 0.04 X10^3/uL; Basophil% 0.4 % (0-1); Eosinophil# 0.01 X10^3/uL; Eosinophils% 0.1 % (0-5); Hematocrit 49.1 % (37-47); Hemoglobin 15.6 g/dL (12.0-15.0); Lymphocyte % 17.2 % (19-41); Mean Corp Hgb Conc 31.8 g/dL (32-36); Mean Corpuscular Hgb 28.1 pg (27.0-32.0); Mean Corpuscular Volume 88.3 fL (81-99); Mean Platelet Vol. 11.1 fl (6.2-12.0); Monocyte# 0.81 X10^3/uL; Monocyte% 8.2 % (0-10); NRBC Flagged by Analyzer 0 % (0-5); Neutrophil # 7.27 X10^3/uL (2.7-7.7); Neutrophil % 73.8 % (47-70); Platelet Count 227 K/mm3 (150-450); RBC Distribution Width CV 15.3 % (11.6-14.6); RBC Distribution Width SD 49.6 fl (35.1-43.9); Red Blood Count 5.56 M/mm3 (4.2-5.4); White Blood Count 9.9 K/mm3 (4.4-11.0)
[2021-10-18 11:47] LABS: Anion Gap 5 (5-15); BUN 19 mg/dL (7-18); BUN/Creat Ratio 22.6 RATIO (10-20); Calcium,Total 9.5 mg/dL (8.5-10.1); Chloride 102 mmol/L (98-107); Creatinine, Serum 0.84 mg/dL (0.55-1.02); EST Glomerular Filtration Rate 74 mL/min (>60); Est Glom Filt Rate - Afr Amer 89 mL/min (>60); Glucose 159 mg/dL (74-106); Potassium 3.8 mmol/L (3.5-5.1); Sodium Level 138 mmol/L (136-145)
== END | disposition home or self-care (01) ==
LOC: OLS.HOSPIC 11:10
PROVIDERS: PCP Family Medicine Geriatric Medicine; Visit Provider Internal Medicine Cardiovascular Disease
DX: Q20.5 Discordant atrioventricular connection (principal)
CPT/HCPCS: 36415; 80048; 85025